=== PATIENT | female | born 1945 | race Hispanic/Latino ===

== ENCOUNTER → 2018-07-02 | Outpatient (CLI) | payer MEDICARE, OTHER ==
--- NOTE | 2018-07-02 17:55 | Diagnostic Imaging Report ---
RADIOGRAPH(S) OF THE ABDOMEN AND PELVIS, 3 view(s) HISTORY: Left lower quadrant pain COMPARISON: None available. FINDINGS: Soft tissue attenuation partially limits sensitivity of the exam. No specific evidence of obstruction or ileus. No definite urinary tract calcification. Two small pelvic calcifications, likely phleboliths. The bones are partially obscured by stool and overlying bowel gas. IMPRESSION: Nonobstructive bowel gas pattern. Signed by: Dr. Eben Bethea D.O., M.M.M. on 07/02/2018 5:52 PM
--- NOTE | 2018-07-02 19:38 | Diagnostic Imaging Report ---
TECHNIQUE: Ultrasound evaluation of the abdomen. Color doppler was utilized to supplement the evaluation. HISTORY: Left lower quadrant pain, history of cholecystectomy 1988 COMPARISON: None available. DISCUSSION: LIVER: No focal lesion is identified. The liver measures 15 cm in the right midclavicular line. BILIARY: Status post remote cholecystectomy. The common bile duct measures 0.3 cm. PANCREAS: Incompletely visualized due to overlying bowel gas, but no abnormality identified involving the visualized portions of the pancreas. SPLEEN: No splenomegaly. PERITONEUM: No free fluid. KIDNEYS: Right: Measures 12 cm in length. No hydronephrosis or solid mass lesion identified. Left: Measures 12 cm in length. No hydronephrosis or solid mass lesion identified. VASCULATURE: Aorta: Limited by regional bowel gas. Interior vena cava: Patent Portal Vein: Nondilated with hepatopedal flow. IMPRESSION: 1. Status post cholecystectomy. 2. No sonographic findings to explain the left lower quadrant pain. Signed by: Dr. Eben Bethea D.O., M.M.M. on 07/02/2018 7:35 PM
== END ==
LOC: US 16:38
PROVIDERS: ATTEND Internal Medicine Gastroenterology
DX: R10.84 Generalized abdominal pain (principal); R19.04 Left lower quadrant abdominal swelling, mass and lump
CPT/HCPCS: 74018; 76700

== ENCOUNTER → 2018-07-12 | Day surgery (SDC) | payer MEDICARE, OTHER ==
[2018-07-08 12:43] LABS: BASOPHILS # (AUTO) 0.1 (0.0-0.1); BASOPHILS % 0.8 % (0.0-1.0); EOSINOPHILS # (AUTO) 0.2 (0.0-0.4); EOSINOPHILS % 2.2 % (0.0-6.0); LYMPHOCYTES % 22.4 % (18.0-39.1); MEAN CORPUSCULAR HEMOGLOBIN 28.9 pg (28-32); MEAN CORPUSCULAR HGB CONC 32.4 g/dL (31-35); MEAN CORPUSCULAR VOLUME 89.2 fL (81-99); MONOCYTES # (AUTO) 0.7 (0.2-0.8); MONOCYTES % 7.3 % (4.4-11.3); NEUTROPHILS % 66.9 % (38.7-80.0); PLATELET COUNT 260 x10e3/uL (140-360); RED BLOOD COUNT 3.81 x10e6/uL (3.6-5.1); RED CELL DISTRIBUTION WIDTH 13.4 % (11.7-14.4)
[~2018-07-12] MED LIST: ADVAIR 250-501 EACH INH; ASMANEX220 MC1 PO; ATORVASTATIN CA20 MG PO; BENICAR40 MG PO; BP MEDICATION PO; FENTANYL CITRATE/PF 100MCG/2 ML INJ ONE; FUROSEMIDE40 MG PO; GABAPENTIN400 MG PO; HUMALOG MI100 UNITS/ SC; HYOSCYAMINE SULFATE 0.5 MG/ML INJ ONE; MIDAZOLAM HCL 2 MG/2 ML VIAL ONE; OMEPRAZOLE40 MG PO; PRO AIR INH; PROPOFOL IV EMULSION 10 MG/ML 50 ML VIAL ONE; RANITIDINE HCL300 M1 PO
--- OUTSIDE RECORDS SUMMARY | 2018-07-12 09:27 | XMS REPORT | Summary of Care ---
Author Organization Unknown Address Unknown Phone Unavailable Encounter HQ Lokeshr_luanne(MARGARET) [id number] Date(s): 08/09/14 - 08/09/14 [facility] [address] [place] [address]- [phone] Discharge Disposition: Home Physician Attending: Edis Glynn MD Physician_Referring: Edis Glynn MD Vital Signs No data available for this section Problem List Condition Effective Dates Status Health Status Informant Abdominal Active pain(Confirmed) Asthma(Confirmed) Active CAD - Coronary Active artery disease(Confirmed) CHF - Congestive Resolved heart failure(Confirmed) Depression(Confirmed Active ) Diabetes Active mellitus(Confirmed) Diarrhea(Confirmed) Active Gastritis(Confirmed) Active GERD Active (gastroesophageal reflux disease)(Confirmed) Hypertension(Confirm Active ed) Nausea and Active vomiting(Confirmed) Obese(Confirmed) Active Sleep Active apnea(Confirmed) SOB (shortness of Active breath) on exertion(Confirmed) Allergies, Adverse Reactions, Alerts Substance Reaction Severity Status cephalexin Active Lyrica Active traMADol Active Medications No data available for this section Results No data available for this section Immunizations Vaccine Date Refusal Reason pneumococcal 23-valent vaccine 07/15/09 Procedures No data available for this section Social History Social History Type Response Smoking Status Never smoker; Exposure to Tobacco Smoke None; Cigarette Smoking Last 365 Days No; Reg Smoking Cessation Counseling No Assessment and Plan No data available for this section
--- OUTSIDE RECORDS SUMMARY | 2018-07-12 09:27 | XMS REPORT | Summary of Care ---
Author Organization Unknown Address Unknown Phone Unavailable Encounter HQ Carla(MARGARET) [id number] Date(s): 09/06/14 - 09/06/14 [facility] [address] [place], [place] [address] [phone] Discharge Disposition: Home Physician Attending: Jaguar Rodriguez MD Vital Signs No data available for [...] Refusal Reason pneumococcal 23-valent vaccine 07/15/09 Procedures Procedure Date Related Diagnosis Body Site Cholecystectomy Hysterectomy Operation Social History Social History Type Response Smoking Status Never smoker; Exposure to Tobacco Smoke None; Cigarette Smoking Last 365 Days No; Reg Smoking Cessation Counseling No Assessment and Plan No data available for this section
--- OUTSIDE RECORDS SUMMARY | 2018-07-12 09:27 | XMS REPORT | Continuity of Care Document ---
Author Author [facility] Interface Address Unknown Phone Unavailable Problems Problem Status Onset Date Classification Date Reported Comments Source SCREENING MAMMOGRAM Active 09/02/2017 [facility] Radiculopathy, thoracic region 07/16/2017 10/16/2017 [facility] Acute constipation 07/10/2017 10/16/2017 [facility] Thoracic radiculopathy 07/10/2017 10/16/2017 [facility] Right flank pain 07/10/2017 10/16/[address] [facility] [address] SENT- ABD PAIN Active 07/09/2017 [facility] DX: [id number] (PRIMARY) HYPERTENSION Active 04/07/2017 [facility] ABN LFTS R94.5 Active 01/28/2017 [facility] DX; R06.02= Active 12/23/2016 [facility] Z12.31 Active 09/02/2016 [facility] ROUTINE MAMMOGRAM Active 08/30/2015 [facility] 786.6 CARDIAC MASS Active 11/28/2014 [facility] MASS IN CHEST Active 10/09/2014 [facility] SCREENING Active 08/08/2014 [facility] 401.9/250.01/789.01/789.06/577.1 Active 01/12/2014 [facility] UNK Active 01/12/2014 [facility] Abdominal pain Active Problem 10/16/2017 [facility] Asthma Active Problem 10/16/2017 [facility] CAD - Coronary artery disease Active Problem 10/16/2017 [facility] CHF - Congestive heart failure Resolved Problem 10/16/2017 [facility] Depression Active Problem 04/13/2017 [facility] Diabetes mellitus Active Problem 10/16/2017 [facility] Diarrhea Active Problem 10/16/2017 [facility] Gastritis Active Problem 10/16/2017 [facility] GERD (<span ID="[id number]">Confirmed</span>) Active Problem 10/16/2017 [facility], [facility] Hypertension Active Problem 10/16/2017 [facility], [facility] Nausea and vomiting Active Problem 10/16/2017 [facility] Obese Active Problem 10/16/2017 [facility] Sleep apnea Active Problem 10/16/2017 [facility] SOB on exertion(<span ID="[id number]">Confirmed</span>) Active Problem 10/16/2017 [facility], [facility] Encounter for screening mammogram for malignant neoplasm of breast 10/16/2017 [facility] Constipation, unspecified 10/16/2017 [facility] Solitary pulmonary nodule 10/16/2017 [facility] Hypertensive heart disease with heart failure 10/16/2017 [facility] Heart failure, unspecified 10/16/2017 [facility] Type 2 diabetes mellitus without complications 10/16/2017 [facility] Atherosclerotic heart disease of [place] coronary artery without angina pectoris 10/16/2017 [facility] 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/2017 [facility] CHEST SWELLING/MASS/LUMP Active [facility] ENCNTR SCREEN MAMMOGRAM FOR MALIGNANT NE Active [facility] ESSENTIAL (PRIMARY) HYPERTENSION Active [facility] ABNORMAL RESULTS OF LIVER FUNCTION STUDI Active [facility] Medications Medication Details Route Status Patient Instructions Ordering Provider Order Date Source Docusate Sodium 100 MG Oral Capsule [Colace] 100 mg=1 cap, PO, BID, PRN Constipation, # 60 cap, 0 Refill(s) Active 07/10/2017 [facility] Diazepam 5 MG Oral Tablet [Valium] 5 mg=1 tab, PO, ONCE, PRN Pain, before bedtime, # 10 tab, 0 Refill(s) Active 07/10/2017 [facility] Valium 5 mg, 1 mL, Route: IVP, Drug form: INJ, ONCE, Dosing Weight 103.182, kg, Priority: STAT, Start date: 07/09/17 22:18:00 RECORD LABEL INTERNSHIP, Stop date: 07/09/17 22:18:00 CSTNotes: (Same as: Valium) WASTE: F/P - Black; E - White/Blue Inactive 07/10/2017 [facility] Visipaque 100 mL, Route: IV, Drug Form: SOLN, ONCALL, Start date: 04/10/17 10:00:00 CDT, Duration: 1 doses or timesNotes: (Same as: [place]). WASTE: F/P - Black; E - Municipal Trash Bin Active 04/10/2017 [facility] Sodium Chloride 0.154 MEQ/ML Injectable Solution 1,000 mL, Rate: 25 ml/hr, Infuse over: 40 hr, Route: IV, Dosing Weight 104.545 kg, Total Volume: 1,000, Start date: 01/25/14 6:52:00, Duration: 30 day, Stop date: 02/24/14 6:51:00 Inactive 01/25/2014 [facility] 60 ACTUAT mometasone furoate 0.2 MG/ACTUAT Dry Powder Inhaler [Asmanex] 0 Refill(s) Active 01/23/2014 [facility] Nitroglycerin 0.4 MG Sublingual Tablet [Nitrostat] 0.4 mg=1 tab, SL, Q5Min, Chest Pain, # 100 tab, 0 Refill(s) Active 01/23/2014 [facility] Olmesartan medoxomil 40 MG Oral Tablet [Benicar] 40 mg=1 tab, PO, Daily, # 30 tab, 0 Refill(s) Active 01/23/2014 [facility] Furosemide 20 MG Oral Tablet 20 mg=1 tab, PO, Daily, # 30 tab, 0 Refill(s) Active 01/23/2014 [facility] Metformin hydrochloride 500 MG Oral Tablet 500 mg=1 tab, PO, BID, # 30 tab, 0 Refill(s) Active 01/23/2014 [facility] NovoLOG 70/30 40 units, SUB-Q, BID, 0 Refill(s) Active 01/23/2014 [facility] Allergies, Adverse Reactions, Alerts Substance Category Reaction Severity Reaction type Status Date Reported Comments Source cephalexin Assertion Drug allergy Active [facility] Lyrica Assertion Drug allergy Active [facility] traMADol Assertion Drug allergy Active [facility] Immunizations Immunization Date Given Site Status Last Updated Comments Source pneumococcal 23-valent vaccine 07/15/2009 Buttock completed Pichardo [facility], [facility] Results Order Name Results Value Reference Range Date Interpretation Comments Source Breast Mammo Scrn MATIAS incl CAD MA Breast Mammo Scrn MATIAS incl CAD MA BILATERAL DIGITAL SCREENING MAMMOGRAM WITH CAD: 10/13/2017 CLINICAL: /Routine. Current study was evaluated with a Computer Aided Detection (CAD) system. COMPARISON:Comparison is made to exams dated: 10/03/2016 mammogram, 09/05/2015 mammogram, 08/09/2014 mammogram, 07/29/2013 mammogram, 07/27/2012 mammogram, and 07/11/2011 mammogram - [facility]. TECHNIQUE: Mammographic views were obtained using digital acquisition. [employer] Version 1.3 was utilized for computer aided detection. FINDINGS: The tissue of both breasts is almost entirely fat. Technologist indicates the exam is limited as the patient had difficulty standing and holding still during the exam. Best images obtained were submitted for review. There is a benign cyst and an intramammary node in the left breast. There also are benign vascular calcifications and calcifications in both breasts. No significant masses, calcifications, or other findings are seen in either breast. There has been no significant interval change. IMPRESSION: BENIGN RECOMMENDATION:There is no mammographic evidence of malignancy. A 1 year screening mammogram is recommended.(10/14/2018) This exam was interpreted at [id number] for [facility]. Darrell olguin/paige:10/13/2017 13:55:12 Recreation Director(s): Steffanie Kan [facility] letter sent: BI-RADS 1/2 Mammogram BI-RADS: 2 Benign 10/13/2017 - - Read by: Darrell Ny MD Dictated Date/time: 10/13/17 13:55 Electronically Signed by: Darrell Ny MD 10/13/17 13:55 FINAL REPORT [facility] URINE AND STOOL UA Urobilinogen <=1.0 mg/dL 0.1 - 1.0 07/10/2017 [facility] URINE AND STOOL UA Ketones Negative mg/dL Negative mg/dL 07/10/2017 [facility] URINE AND STOOL UA Glucose 500 mg/dL Negative mg/dL 07/10/2017 [facility] URINE AND STOOL UA Bili Negative *NA* (07/09/17 7:30 PM) Negative 07/10/2017 [facility] URINE AND STOOL UA Blood Small *ABN* (07/09/17 7:30 PM) Negative 07/10/2017 [facility] URINE AND STOOL UA Nitrite Negative (07/09/17 7:30 PM) Negative 07/10/2017 [facility] URINE AND STOOL UA Color Yellow *NA* (07/09/17 7:30 PM) Yellow 07/10/2017 [facility] URINE AND STOOL UA Turbidity Clear (07/09/17 7:30 PM) Clear 07/10/2017 [facility] URINE AND STOOL UA Protein 100 mg/dL Negative mg/dL 07/10/2017 [facility] URINE AND STOOL UA pH 5.0 5.0 - 8.0 07/10/2017 [facility] URINE AND STOOL UA Spec Grav 1.018 <=1.030 07/10/2017 [facility] URINE AND STOOL UA Renal Epi 8 /LPF <=0 /LPF 07/10/2017 [facility] URINE AND STOOL UA Hyal Cast 1 /LPF 0 - 2 07/10/2017 [facility] URINE AND STOOL UA RBC 5 /HPF 0 - 2 07/10/2017 [facility] URINE AND STOOL UA Leuk Est Small *ABN* (07/09/17 7:30 PM) Negative 07/10/2017 [facility] URINE AND STOOL UA WBC 10 /HPF 0 - 5 07/10/2017 [facility] URINE AND STOOL UA Mucus Few /LPF None Seen /LPF 07/10/2017 [facility] URINE AND STOOL UA Sq Epi Few /LPF Few /LPF 07/10/2017 [facility] URINE CHEM U Preg Negative (07/09/17 7:30 PM) Negative 07/10/2017 [facility] CHEM PANEL Lipase Lvl 136 unit/L 73 - 393 07/10/2017 [facility] CHEM PANEL eGFR 43 mL/min/1.73m2 07/10/2017 Result Comment: The eGFR is calculated using the CKD-EPI formula. In most young, healthy individuals the eGFR will be >90 mL/min/1.73m2. The eGFR declines with age. An eGFR of 60-89 may be normal in some populations, particularly the elderly, for whom the CKD-EPI formula has not been extensively validated. Use of the eGFR is not recommended in the following populations: Individuals with unstable creatinine concentrations, including patients and those with serious co-morbid conditions. Patients with extremes in muscle mass or diet. The data above are obtained from the National Kidney Disease Education Program (NKDEP) which additionally recommends that when the eGFR is used in patients with extremes of body mass index for purposes of drug dosing, the eGFR should be multiplied by the estimated BMI. [facility] CHEM PANEL Alk Phos 110 unit/L 39 - 136 07/10/2017 [facility] CHEM PANEL Bili Total 0.3 mg/dL 0.2 - 1.3 07/10/2017 [facility] CHEM PANEL Glucose Lvl 293 mg/dL 70 - 99 07/10/2017 [facility] CHEM PANEL BUN 24 mg/dL 7 - 22 07/10/2017 [facility] CHEM PANEL Creatinine Lvl 1.27 mg/dL 0.50 - 1.40 07/10/2017 [facility] CHEM PANEL Albumin Lvl 3.2 g/dL 3.5 - 5.0 07/10/2017 [facility] CHEM PANEL ALT 64 unit/L 0 - 65 07/10/2017 [facility] CHEM PANEL Sodium Lvl 134 meq/L 135 - 145 07/10/2017 [facility] CHEM PANEL Potassium Lvl 4.9 meq/L 3.5 - 5.1 07/10/2017 [facility] CHEM PANEL Chloride Lvl 100 meq/L 95 - 109 07/10/2017 [facility] CHEM PANEL AST 62 unit/L 0 - 37 07/10/2017 [facility] CHEM PANEL CO2 26 meq/L 24 - 32 07/10/2017 [facility] CHEM PANEL Calcium Lvl 8.7 mg/dL 8.5 - 10.5 07/10/2017 [facility] CHEM PANEL Total Protein 7.5 g/dL 6.4 - 8.4 07/10/2017 [facility] CHEM PANEL Globulin 4.3 g/dL 2.7 - 4.2 07/10/2017 [facility] CHEM PANEL A/G Ratio 0.7 0.7 - 1.6 07/10/2017 [facility] CHEM PANEL AGAP 12.9 meq/L 10.0 - 20.0 07/10/2017 [facility] CHEM PANEL B/C Ratio 19 6 - 25 07/10/2017 [facility] HEMATOLOGY Monocytes # 0.9 K/CMM 0.0 - 0.8 07/10/2017 [facility] HEMATOLOGY Basophils 1.0 % 0.0 - 1.0 07/10/2017 [facility] HEMATOLOGY Monocytes 11.5 % 2.0 - 12.0 07/10/2017 [facility] HEMATOLOGY Lymphocytes 26.8 % 20.0 - 40.0 07/10/2017 [facility] HEMATOLOGY Lymphocytes # 2.0 K/CMM 1.0 - 5.5 07/10/2017 [facility] HEMATOLOGY Segs-Bands # 4.5 K/CMM 1.5 - 8.1 07/10/2017 [facility] HEMATOLOGY Eosinophils 1.2 % 0.0 - 4.0 07/10/2017 [facility] Eosinophils # 0.1 K/CMM 0.0 - 0.5 07/10/2017 [facility] Basophils # 0.1 K/CMM 0.0 - 0.2 07/10/2017 [facility] Segs 59.5 % 45.0 - 75.0 07/10/2017 [facility] MPV 11.2 fL 7.4 - 10.4 07/10/2017 [facility] MCV 86.4 fL 80.0 - 98.0 07/10/2017 [facility] MCH 28.7 pg 27.0 - 31.0 07/10/2017 [facility] Platelet 216 K/CMM 133 - 450 07/10/2017 [facility] RDW 13.8 % 11.5 - 14.5 07/10/2017 [facility] MCHC 33.2 g/dL 32.0 - 36.0 07/10/2017 [facility] RBC 4.30 M/CMM 4.20 - 5.40 07/10/2017 [facility] Hct 37.2 % 36.0 - 48.0 07/10/2017 [facility] Hgb 12.4 g/dL 12.0 - 16.0 07/10/2017 [facility] WBC 7.5 K/CMM 3.7 - 10.4 07/10/2017 [facility] Chest Pulmonary Embolism CTA Chest Pulmonary Embolism CTA addendum: 3 D volume rendered images were also performed Clinical Indication: - right lower flank pain Comparison: None TECHNIQUE: Sequential trans-axial images were obtained thru the chest and upper abdomen after administration of iodinated contrast. Coronal and sagittal reconstructions were obtained. 100 cc of nonionic contrast material was used for the exam. Dose: DLP=mGy-cm FINDINGS: LUNG PARENCHYMA AND PLEURA: There are no lung nodules. There is no significant interstitial lung disease. There are no pleural effusions. There is no pneumothorax. Within the right lower lobe there is a 3 mm nodule medially. No acute pulmonary infiltrates. AIRWAY: The central airway is normal. MEDIASTINUM: No significant mediastinal lymphadenopathy. HEART: There is no evidence of pulmonary thromboembolic disease. The cardiac chambers are otherwise unremarkable. There is no pericardial effusion. VASCULAR STRUCTURES: The pulmonary arteries and great vessels are unremarkable. The thoracic aorta is within normal limits. The superior vena cava is unremarkable. OSSEOUS STRUCTURES: There are no significant osseous abnormalities seen. VISUALIZED UPPER ABDOMEN: The visualized upper abdomen is within normal limits. IMPRESSION: Chest CT with contrast shows no evidence for pulmonary thromboembolic disease. No aortic aneurysm or dissection Right lower lobe pulmonary nodule. SL: SARAH 07/09/2017 - - Read by: Anthony Tomlin MD Dictated Date/time: 08/11/17 10:21 Electronically Signed by: Anthony Tomlin MD 08/11/17 10:22 FINAL REPORT - - Read by: Anthony Tomlin MD Dictated Date/time: 07/10/17 00:14 Electronically Signed by: Anthony Tomlin MD 07/10/17 00:20 FINAL REPORT [facility] Abdomen/Pelvis IV contrast only CT ED Abdomen/Pelvis IV contrast only CT History: Abdomen Pain DLP: 1139.36 Exam: CT Abdomen \\T\\ Pelvis Technique: Serial axial enhanced images of the abdomen and pelvis with reconstruction images are provided. Findings: Lung bases are clear other than a 6 mm right lower lobe pulmonary nodule on image 22. No pleural effusions are seen. Liver, spleen, adrenal glands, kidneys and pancreas are normal. Gallbladder not seen. There is no free fluid or bulky lymphadenopathy. Bowel loops are normal. Moderate stool seen. No appendiceal inflammation seen. Aorta and bladder are normal. Uterus removed. Impression: No acute abnormality. 07/09/2017 - - Read by: Parveen Garcia MD Dictated Date/time: 07/10/17 00:17 Electronically Signed by: Parveen Garcia MD 07/10/17 00:53 FINAL REPORT [facility] CHEM PANEL eGFR 89 mL/min/1.73m2 04/10/2017 Result Comment: The eGFR is calculated using the CKD-EPI formula. In most young, healthy individuals the eGFR will be >90 mL/min/1.73m2. The eGFR declines with age. An eGFR of 60-89 may be normal in some populations, particularly the elderly, for whom the CKD-EPI formula has not been extensively validated. Use of the eGFR is not recommended in the following populations: Individuals with unstable creatinine concentrations, including patients and those with serious co-morbid conditions. Patients with extremes in muscle mass or diet. The data above are obtained from the National Kidney Disease Education Program (NKDEP) which additionally recommends that when the eGFR is used in patients with extremes of body mass index for purposes of drug dosing, the eGFR should be multiplied by the estimated BMI. [facility] CHEM PANEL POC Creatinine 0.7 mg/dL 0.5 - 1.4 04/10/2017 [facility] Abdomen/Pelvis w IV contrast CT Abdomen/Pelvis w IV contrast CT Patient Name: KEITH KISER : 1945; Age: 71 years y/o Female MR: [id number] * I. COMPUTED TOMOGRAPHY SCAN OF THE ABDOMEN with contrast. * II. COMPUTED TOMOGRAPHY SCAN OF THE PELVIS with contrast HISTORY: Right upper quadrant abdominal pain, abdominal distention COMPARISON: 09/06/2014. Studies of 11/25/2013, 07/23/2011, and a chest and 02/12/2010 and a chest computed tomography scan of 12/01/2014 were reviewed. * TECHNIQUE: I. COMPUTED TOMOGRAPHY SCAN OF THE ABDOMEN with contrast: Helical CT images were obtained on a multidetector computed tomography from the domes the diaphragms to the iliac crests following the intravenous administration of nonionic iodinated contrast. Oral contrast was also provided. II. COMPUTED TOMOGRAPHY SCAN OF THE PELVIS with contrast: Helical CT images were obtained on a multidetector computed tomography from the iliac crests to the pubic symphysis following the intravenous administration of nonionic iodinated contrast. Oral contrast was also provided. Coronal and sagittal reconstructions were obtained. CT radiation dose DLP: 2127 mGy-cm FINDINGS: There is no evidence of an acute intra-abdominal process. There is no free intraperitoneal gas, intra-abdominal abscess, focal inflammation, or bowel obstruction. The liver, spleen, pancreas, and adrenal glands are normal in appearance. The kidneys are normal in size and show good, symmetrical excretion without hydronephrosis. No focal renal lesions are seen. There is a moderate amount of fecal material within the colon (constipation). The gastrointestinal structures are otherwise unremarkable. There is no evidence of obstruction or ileus. The appendix is not definitely visualized. There is no evidence of appendicitis. No mass or adenopathy is seen within the abdomen or pelvis. There is no ascites or other fluid collection. There is a very small umbilical hernia. There is no herniation of bowel. The gallbladder is not visualized on this study or several prior CT scans. Although no surgical clips are seen in the right upper quadrant, this is suspected the patient is status post cholecystectomy. Please correlate with surgical history. The uterus is not visualized. Presumably, the patient has had a prior hysterectomy. The aorta is normal in caliber. There are mild atherosclerotic calcifications. There is an about 5.5 mm nodule posterior in the right lung base on image 24 of series 6. This appears to be slightly larger than the prior studies and measures 4.5 mm on that study. This nodule was present in September 2008 but measured only approximately 1 -- 2 mm. This slowly growing nodule is nonspecific. It is fairly dense and well defined which would suggest a benign lesion. However, a slowly growing neoplasm cannot be excluded. Therefore, continued follow-up of this nodule is suggested. A follow-up computed tomography scan of the chest in approximately 6 months is recommended. The visualized lung bases are otherwise clear. There are no infiltrates or pleural effusions. The heart is normal in size. There is no pericardial effusion. The osseous structures are unremarkable. No blastic or destructive lesions are seen. IMPRESSION: 1. No evidence of an acute or focal intra-abdominal process. 2. Constipation. 3. Status post hysterectomy. 4. Very small umbilical hernia. 5. Apparent prior cholecystectomy. Please correlate with surgical history. 6. Atherosclerosis. 7. Small (approximately 5.5 mm) right lower lobe pulmonary nodule which appears to have been slowly growing over serial studies from September 2008. This is nonspecific. This could represent a "growing granuloma" or a very slow growing neoplastic process. A follow-up study in 6 months is suggested. SL: [id number] 04/10/2017 - - Read by: Lukasz Santigao MD Dictated Date/time: 04/10/17 13:12 Electronically Signed by: Lukasz Santiago MD 04/10/17 15:05 FINAL REPORT [facility] Abdomen complete US Abdomen complete US Patient Name: KEITH KISER : 1945; Age: 71 years y/o Female MR: [id number] Study: Abdomen complete US 02/11/2017 10:04 AM CDT Ordering Physician: Edis Glynn MD Clinical Indication: - R94.5 Abnormal results of liver function studies; Comparison: 02/14/2010 TECHNIQUE: Grayscale and limited color sonographic evaluation of the abdomen was performed with standard technique. FINDINGS: LIVER: Diffusely hyperechoic suggesting fatty infiltration. No focal lesion or duct dilatation appreciated. BILE DUCTS: The intrahepatic and extrahepatic bile ducts are not dilated with the common bile duct measuring 5.5 mm. The distal common bile duct is not well seen. GALLBLADDER: Absent. PANCREAS: The visualized pancreas appears unremarkable.. SPLEEN: The spleen is unremarkable and measures 8 x 3 x 3 cm. KIDNEY: The right kidney measures 10.8 x 5.3 x 5.6 cm. The left kidney measures 10.8 x 5.3 x 4.7 cm. No pelvocaliectasis, nephrolithiasis or renal mass lesion identified bilaterally. AORTA AND INFERIOR VENA CAVA: Only proximal abdominal aorta visualized appearing normal caliber. Mid and distal abdominal aorta obscured. Suprarenal IVC appears normal. ASCITES: There is no abdominal ascites. IMPRESSION: Prior cholecystectomy. No pathologic biliary ductal dilatation or acute findings are otherwise noted. Hepatic steatosis. SL: [id number] 02/11/2017 - - Read by: Corey Salinas MD Dictated Date/time: 02/11/17 13:38 Electronically Signed by: Corey Salinas MD 02/11/17 13:41 FINAL REPORT [facility] Cardiac SPECT multi studies MT Cardiac SPECT multi studies MT EXAM: Cardiac SPECT multi studies MT INDICATION: Angina REPORT: The patient performed treadmill exercise using a GELY protocol, exercising for 4 minutes 17 seconds minutes to stage 2 . The test was terminated due to achieving target heart rate. The heart rate frances from 82 beats per minute to 142 per minute at peak stress which is 94% of the predicted maximum predicted heart rate. The blood pressure frances from 160/80 mmHg at rest to 180/80 mmHg during peak exercise, which is a normal response. The patient does not develop any symptoms other than fatigue during the procedure. The resting ECG showed normal sinus rhythm and prior to bundle branch block without showing any ST-segment changes consistent with myocardial ischemia. MYOCARDIAL PERFUSION IMAGING: Myocardial perfusion imaging was performed at rest following the injection of 30 mCi of Tc-99m sestamibi. At peak exercise, the patient was injected with 10 mCi of Tc-99m sestamibi and exercise was continued for additional 1 minute. Gated post-stress tomographic imaging was performed. The overall quality of the study is adequate. Attenuation artifact was mild. Left ventricular cavity was noted to be normal on the rest and stress studies. SPECT images demonstrate homogeneous tracer distribution throughout the myocardium. Gated SPECT imaging reveals normal myocardial thickening and wall motion. The left ventricular ejection fraction was calculated to be 70%. IMPRESSION: 1. Myocardial perfusion imaging is normal. 2. Overall left ventricular systolic function was normal without regional wall motion abnormalities. [id number] 12/29/2016 - - Read by: Donny Aucna MD Dictated Date/time: 12/30/16 16:28 Electronically Signed by: Donny Acuna MD 12/30/16 16:32 FINAL REPORT [facility] Breast Mammo Scrn MATIAS incl CAD MA Breast Mammo Scrn MATIAS incl CAD MA - BREAST MAMMO SCRN MATIAS INCL CAD MA BILATERAL DIGITAL SCREENING MAMMOGRAM WITH CAD: 10/03/2016 CLINICAL: Routine. Current study was evaluated with a Computer Aided Detection (CAD) system. Comparison is made to exams dated: 09/05/2015 mammogram, 08/09/2014 mammogram, 07/29/2013 mammogram, 07/27/2012 mammogram, 07/11/2011 mammogram and 07/09/2010 mammogram - [facility]. The tissue of both breasts is almost entirely fat. There are benign vascular calcifications and calcifications in both breasts. There also is a benign cyst and an intramammary node in the left breast. No significant masses, calcifications, or other findings are seen in either breast. There has been no significant interval change. IMPRESSION: BENIGN There is no mammographic evidence of malignancy. A 1 year screening mammogram is recommended. Darrell olguin/penrad:10/13/2016 13:47:16 Recreation Director: Jessica Larson, [facility] This exam was dictated and interpreted by [id number] for [facility]. letter sent: Normal exam Mammogram BI-RADS: 2 Benign 10/03/2016 - - Read by: Darrell Ny MD Dictated Date/time: 10/13/16 13:47 Electronically Signed by: Darrell Ny MD 10/13/16 13:47 FINAL REPORT [facility] Digital Mammo Screening Matias MA Digital Mammo Screening Matias MA - DIGITAL MAMMO SCREENING MATIAS MA BILATERAL DIGITAL SCREENING MAMMOGRAM WITH CAD: 09/05/2015 CLINICAL: Routine. Current study was evaluated with a Computer Aided Detection (CAD) system. Comparison is made to exams dated: 08/09/2014 mammogram, 07/29/2013 mammogram, 07/27/2012 mammogram, 07/11/2011 mammogram, 07/09/2010 mammogram and 07/04/2009 mammogram - [facility]. The tissue of both breasts is almost entirely fat. There are benign vascular calcifications and calcifications in both breasts. There also is a benign cyst and an intramammary node in the left breast. No significant masses, calcifications, or other findings are seen in either breast. There has been no significant interval change. IMPRESSION: BENIGN There is no mammographic evidence of malignancy. A 1 year screening mammogram is recommended. Darrell olguin/penrad:09/05/2015 14:09:18 Recreation Director: Viki William, [facility] This exam was dictated and interpreted by [id number] for [facility]. letter sent: Normal exam Mammogram BI-RADS: 2 Benign 09/05/2015 - - Read by: Darrell Ny MD Dictated Date/time: 09/05/15 14:09 Electronically Signed by: Darrell Ny MD 09/05/15 14:09 FINAL REPORT [facility] CHEM [facility] eGFR 90 mL/min/1.73m2 12/01/2014 1Result Comment: The eGFR is calculated using the CKD-EPI formula. In most young, healthy individuals the eGFR will be >90 mL/min/1.73m2. The eGFR declines with age. An eGFR of 60-89 may be normal in some populations, particularly the elderly, for whom the CKD-EPI formula has not been extensively validated. Use of the eGFR is not recommended in the following populations: Individuals with unstable creatinine concentrations, including patients and those with serious co-morbid conditions. Patients with extremes in muscle mass or diet. The data above are obtained from the National Kidney Disease Education Program (NKDEP) which additionally recommends that when the eGFR is used in patients with extremes of body mass index for purposes of drug dosing, the eGFR should be multiplied by the estimated BMI. [facility] CHEM PANEL POC Creatinine 0.7 mg/dL 0.5 - 1.4 12/01/2014 [facility] Chest w contrast CT Chest w contrast CT CT SCAN OF THE CHEST (without contrast) History: 726.6 (swelling, mass, or lump in chest). It is noted abdominal CT scan described a "4.5 millimeter nodule" in the right lower lobe. A prior study 02/16/[address] scan of 11/25/[address] images through the lung bases from abdominal CT scan of 09/06/2014 were also reviewed. Technique: Helical CT images were obtained from the thoracic inlet to the upper abdomen. Intravenous contrast was not administered. FINDINGS: 1. No change in tiny (approximately 3.5 mm) pulmonary nodule posteriorly in the right lower lobe near the costophrenic sulcus (image 49 of series 4). This was present on an abdominal CT scans of 02/12/2010 and 10/01/2008 and therefore almost certainly represents a benign nodule such as a noncalcified granuloma. 2. No other pulmonary nodules or masses are seen. There is no hilar or mediastinal adenopathy. 3. No evidence of an active or acute process within the chest. There are no infiltrates or pleural effusions. 4. Mild areas of linear scarring in the right middle lobe and right lower lobe. There is minimal scarring in the left base. 5. The heart size is at the upper limits of normal. There is no pericardial effusion. 6. Mild atherosclerotic changes involving the thoracic aorta. There is no aneurysm or dissection 7. Mild fatty changes involving the liver. 8. Minimal degenerative changes in the thoracic spine. The regional skeleton is otherwise unremarkable. No blastic or destructive lesions are seen. CONCLUSION: 1. Tiny nodule in the right lung base which is unchanged from at least 2008 and therefore is felt to represent a small benign nodule such as a noncalcified granuloma. 2. No other suspicious nodules or masses. 3. No evidence of an active or acute process within the chest . 4. Mild areas of scarring within the lungs. 5. Mild fatty change involving the liver. Coding: Chest w contrast CT CPT code: 40759 SL: 13 Lukasz Santiago M.D. 12/01/2014 - - Read by: Lukasz Santiago MD Dictated Date/time: 12/01/14 13:47 Electronically Signed by: Lukasz Santiago MD 12/01/14 14:52 FINAL REPORT [facility] Abdomen/Pelvis w IV contrast CT Abdomen/Pelvis w IV contrast CT EXAM: CT SCAN OF THE ABDOMEN AND PELVIS WITH CONTRAST DATE: 09/06/2014 COMPARISON STUDIES: CT of the abdomen and pelvis of 11/25/2013. CLINICAL INDICATION: Right upper quadrant and right lateral abdominal pain. DATA: History of total hysterectomy and cholecystectomy. TECHNIQUE: Contiguous 5 mm spirally acquired axial images through the abdomen and pelvis were obtained after the intravenous administration 100 cc of Omnipaque 300 contrast material and following oral Omnipaque-300 contrast material. Coronal and sagittal reconstructed images were created and are provided for interpretation as well. DISCUSSION: Areas of linear scarring and/or subsegmental atelectasis are seen in both lower lobes. A 4.5 mm nodule is seen in the right lower lobe posteriorly on image 26 of series 2. No other lung base pathology is seen. No pleural or pericardial effusions are demonstrated. No abnormalities of the liver, spleen, pancreas, adrenal glands, kidneys, or biliary tree are seen. The patient is status post cholecystectomy. No abnormalities of the stomach, small bowel, or colon are demonstrated. No obstruction is seen. No lymphadenopathy, masses, or fluid collections are seen within the abdomen and pelvis. No free fluid or free air is seen. CT evaluation of the anterior abdominal wall reveals a small fat-containing umbilical hernia with no surrounding or internal inflammatory changes. There is some mild stranding in the subcutaneous fat of the right paramedian anterior abdominal wall on multiple images, likely from contusion or inflammation. CT evaluation of the pelvis reveals the bladder, vagina, rectum, and perirectal regions to be normal appearance. Calcified phleboliths are seen within the pelvis. The uterus and ovaries are absent surgically. Mild multilevel spondylosis is seen in the thoracic spine. No osseous destructive lesions are seen. Mild calcified atherosclerotic plaque formation is seen at the origin of the right renal artery result in mild right renal artery stenosis. Calcified atherosclerotic plaque formation is also seen in the aortoiliac system and to a trace degree at the origin of the superior mesenteric artery. No abnormalities of the inferior vena cava or of the portal venous system are demonstrated. Trace anterior spondylosis is seen in the thoracolumbar spine. IMPRESSION: 1. Small fat-containing umbilical hernia with no surrounding or internal inflammatory changes. 2. Nonspecific mild stranding in the subcutaneous fat in the right paramedian intra- abdominal wall which could represent contusion or nonspecific panniculitis. Clinical correlation is recommended. 3. 4.5 mm nodule in the right lower lobe posteriorly. If the patient is a smoker or has personal history of cancer, comparison with prior exams and followup chest of the CT in 6 to 12 months' time would be recommended. Otherwise, a followup [address] of the chest with contrast would be recommended. 4. Atherosclerotic vascular disease with mild narrowing of the right renal artery proximally. 5. Status post cholecystectomy, hysterectomy, and bilateral salpingo-oophorectomy. 09/06/2014 - - Read by: Reji Pennington MD Dictated Date/time: 09/06/14 13:06 Electronically Signed by: Reji Pennington MD 09/06/14 16:13 FINAL REPORT [facility] Digital Mammo Screening Matias MA Digital Mammo Screening Matias MA - DIGITAL MAMMO SCREENING MATIAS MA BILATERAL DIGITAL SCREENING MAMMOGRAM WITH CAD: 08/09/2014 CLINICAL: Routine. Current study was evaluated with a Computer Aided Detection (CAD) system. Comparison is made to exams dated: 07/29/2013 mammogram, 07/27/2012 mammogram, 07/11/2011 mammogram, 07/09/2010 mammogram and 07/04/2009 mammogram - [facility]. The tissue of both breasts is almost entirely fat. There are benign vascular calcifications and calcifications in both breasts. There also is a benign intramammary node in the left breast. No significant masses, calcifications, or other findings are seen in either breast. There has been no significant interval change. IMPRESSION: BENIGN There is no mammographic evidence of malignancy. A 1 year screening mammogram is recommended. Darrell olguin/paige:08/10/2014 07:57:23 Recreation Director: Roxann Morgan, [facility] This exam was dictated and interpreted by [id number] for [facility]. letter sent: Normal exam Mammogram BI-RADS: 2 Benign 08/09/2014 - - Read by: Darrell Ny MD Dictated Date/time: 08/10/14 07:57 Electronically Signed by: Darrell Ny MD 08/10/14 07:57 FINAL REPORT [facility] CHEM PANEL eGFR 67 mL/min/1.73m2 01/23/2014 1Result Comment: The eGFR is calculated using the CKD-EPI formula. In most young, healthy individuals the eGFR will be >90 mL/min/1.73m2. The eGFR declines with age. An eGFR of 60-89 may be normal in some populations, particularly the elderly, for whom the CKD-EPI formula has not been extensively validated. Use of the eGFR is not recommended in the following populations: Individuals with unstable creatinine concentrations, including patients and those with serious co-morbid conditions. Patients with extremes in muscle mass or diet. The data above are obtained from the National Kidney Disease Education Program (NKDEP) which additionally recommends that when the eGFR is used in patients with extremes of body mass index for purposes of drug dosing, the eGFR should be multiplied by the estimated BMI. [facility] CHEM PANEL Creatinine Lvl 0.9 mg/dL 0.5 - 1.4 01/23/2014 [facility] CHEM PANEL BUN 17 mg/dL 7 - 22 01/23/2014 [facility] CHEM PANEL Calcium Lvl 9.4 mg/dL 8.5 - 10.5 01/23/2014 [facility] CHEM PANEL CO2 30 meq/L 24 - 32 01/23/2014 [facility] CHEM PANEL Sodium Lvl 140 meq/L 135 - 145 01/23/2014 [facility] CHEM PANEL Chloride Lvl 103 meq/L 95 - 109 01/23/2014 [facility] CHEM PANEL Potassium Lvl 4.4 meq/L 3.5 - 5.1 01/23/2014 [facility] CHEM PANEL AGAP 11.4 meq/L 10.0 - 20.0 01/23/2014 [facility] CHEM PANEL Glucose Lvl 161 mg/dL 70 - 99 01/23/2014 2Interpretive Data: Adult reference range values reflect the clinical guidelines of the [place] [employer]. [facility] Vital Signs Vital Sign Value Date Comments Source Temperature Oral (F) 97.9 F 07/10/2017 [facility] Systolic (mm Hg) 134 07/10/2017 [facility] Diastolic (mm Hg) 58 07/10/2017 [facility] Respitory Rate 18 07/10/2017 [facility] Temperature Oral (F) 98 F 07/10/2017 [facility] Systolic (mm Hg) 165 07/10/2017 [facility] Diastolic (mm Hg) 56 07/10/2017 [facility] Respitory Rate 17 07/10/2017 [facility] Weight 103.182 07/10/2017 [facility] BMI Calculated 44.43 07/10/2017 [facility] Height 152.4 cm 07/10/2017 [facility] Temperature Oral (F) 97.8 F 07/10/2017 [facility] Heart Rate 94 07/10/2017 [facility] Systolic (mm Hg) 139 07/10/2017 [facility] Diastolic (mm Hg) 57 07/10/2017 [facility] Respitory Rate 20 07/10/2017 [facility] BMI Calculated 44.62 12/29/2016 [facility] Weight 103.636 12/29/2016 [facility] Height 152.4 cm 12/29/2016 [facility] Respitory Rate 18 01/25/2014 [facility] Diastolic (mm Hg) 84 01/25/2014 [facility] Systolic (mm Hg) 145 01/25/2014 [facility] Heart Rate 72 01/25/2014 [facility] Systolic (mm Hg) 159 01/25/2014 [facility] Diastolic (mm Hg) 70 01/25/2014 [facility] Heart Rate 63 01/25/2014 [facility] Respitory Rate 18 01/25/2014 [facility] Systolic (mm Hg) 149 01/25/2014 [facility] Respitory Rate 16 01/25/2014 [facility] Diastolic (mm Hg) 56 01/25/2014 [facility] Heart Rate 69 01/25/2014 [facility] Temperature Oral (F) 97.9 F 01/23/2014 [facility] Weight 104.545 01/23/2014 [facility] Height 152.4 cm 01/23/2014 [facility] BMI Calculated 45.01 01/23/2014 [facility] Encounters Location Location Details Encounter Type Encounter Number Reason For Visit Attending Provider ADM Date DC Date Status Source [facility] Bedded Outpatient [id number] Ismael Wiggins 01/25/2014 01/25/2014 [facility] Outpatient [id number] Edis Ruibal 08/09/2014 08/10/2014 [facility] [id number] Jaguar Rodriguez 09/06/2014 09/07/2014 [facility] Outpatient [id number] Kali Fiore 12/01/2014 12/02/2014 [facility] Outpatient [id number] Edis Ruibal 09/05/2015 09/06/2015 [facility] Outpatient [id number] Edis Ruibal 10/03/2016 10/04/2016 [facility] Outpatient [id number] Kali Lecafrica 12/29/2016 12/30/2016 [facility] Outpatient [id number] Edis Ruibal 02/11/2017 02/12/2017 [facility] Outpatient [id number] Vic Melendez 04/10/2017 04/11/2017 [facility] Emergency [id number] Cat Sylvie 07/09/2017 07/10/2017 [facility] Outpatient [id number] Edis Cosmel 10/13/2017 10/14/2017 [facility] Procedures Procedure Code Date Perfomer Comments Source Cholecystectomy [id number] [facility] Hysterectomy [id number] [facility] Operation [id number] [facility] Cholecystectomy [id number] [facility] Hysterectomy [id number] [facility] Operation [id number] [facility]
--- OUTSIDE RECORDS SUMMARY | 2018-07-12 09:27 | XMS REPORT | Summary of Care ---
Author Organization Unknown Address Unknown Phone Unavailable Encounter HQ Lokeshr_luanne(MARGARET) [id number] Date(s): 01/25/14 - 01/25/14 [facility] [address] [address] Discharge Disposition: Home Physician Attending: Ismael Wiggins MD Physician Admitting: Ismael Wiggins MD Physician_Referring: Ismael Wiggins MD Reason for Visit 401.9/250.01/789.01/789.06/577.1 Vital Signs 1 2 3 Most recent to oldest [Reference Range]: 152.4 cm (01/23/14 1:50 PM) Height 97.9 DegF (01/23/14 2:40 PM) Temperature Oral [96.4-99.1 DegF] 145 mmHg *HI* (01/25/14 8:15 AM) 159 mmHg *HI* (01/25/14 7:55 AM) 149 mmHg *HI* (01/25/14 7:40 AM) Systolic Blood Pressure [90-140 mmHg] 84 mmHg (01/25/14 8:15 AM) 70 mmHg (01/25/14 7:55 AM) 56 mmHg *LOW* (01/25/14 7:40 AM) Diastolic Blood Pressure [60-90 mmHg] 18 BRMIN (01/25/14 8:15 AM) 18 BRMIN (01/25/14 7:55 AM) 16 BRMIN (01/25/14 7:40 AM) Respiratory Rate [14-20 BRMIN] 72 bpm (01/25/14 8:15 AM) 63 bpm (01/25/14 7:55 AM) 69 bpm (01/25/14 7:40 AM) Peripheral Pulse Rate [60-100 bpm] 104.545 kg (01/23/14 1:50 PM) Weight 45.01 m2 (01/23/14 1:50 PM) Body Mass Index Problem List Condition Effective Dates Status Health [...] cephalexin Active Lyrica Active traMADol Active Medications Asmanex Twisthaler 60 Dose 220 mcg/inh inhalation aerosol powder 0 Refill(s) Start Date: 01/23/14 Status: Ordered Benicar 40 mg oral tablet 40 mg=1 tab, PO, Daily, # 30 tab, 0 Refill(s) Start Date: 01/23/14 Status: Ordered furosemide 20 mg oral tablet 20 mg=1 tab, PO, Daily, # 30 tab, 0 Refill(s) Start Date: 01/23/14 Status: Ordered metFORMIN 500 mg oral tablet 500 mg=1 tab, PO, BID, # 30 tab, 0 Refill(s) Start Date: 01/23/14 Status: Ordered Nitrostat 0.4 mg sublingual tablet 0.4 mg=1 tab, SL, Q5Min, Chest Pain, # 100 tab, 0 Refill(s) Start Date: 01/23/14 Status: Ordered NovoLOG 70/30 40 units, SUB-Q, BID, 0 Refill(s) Start Date: 01/23/14 Status: Ordered Sodium Chloride 0.9% IV 1,000 mL 1,000 mL, Rate: 25 ml/hr, Infuse over: 40 hr, Route: IV, Dosing Weight 104.545 k g, Total Volume: 1,000, Start date: 01/25/14 6:52:00, Duration: 30 day, Stop mo e: 02/24/14 6:51:00 Start Date: 01/25/14 Stop Date: 01/25/14 Status: Discontinued Results ELECTROLYTES Most recent to 1 oldest [Reference Range]: Sodium Lvl [135-145 140 mEq/L mEq/L] (01/23/14 2:50 PM) Potassium Lvl 4.4 mEq/L [3.5-5.1 mEq/L] (01/23/14 2:50 PM) Chloride Lvl [95-109 103 mEq/L mEq/L] (01/23/14 2:50 PM) CO2 [24-32 mEq/L] 30 mEq/L (01/23/14 2:50 PM) AGAP [10.0-20.0 11.4 mEq/L mEq/L] (01/23/14 2:50 PM) CHEM PANEL Most recent to 1 oldest [Reference Range]: Creatinine Lvl 0.9 mg/dL [0.5-1.4 mg/dL] (01/23/14 2:50 PM) eGFR 67 mL/min/1.73m2 1 *NA* (01/23/14 2:50 PM) BUN [7-22 mg/dL] 17 mg/dL (01/23/14 2:50 PM) Glucose Lvl [70-99 161 mg/dL 2 mg/dL] *HI* (01/23/14 2:50 PM) Calcium Lvl 9.4 mg/dL [8.5-10.5 mg/dL] (01/23/14 2:50 PM) 1Result Comment: The eGFR is calculated using [...] from the National Kidney Disease Education Program ( NKDEP) which additionally recommends that when the eGFR is used in patients with extremes of body mass index for purposes of drug dosing, the eGFR should be mul tiplied by the estimated BMI. 2Interpretive Data: Adult reference range values reflect the clinical guidelines of the [place] [employer]. Medications Administered During Your Visit No data available for this section Immunizations Vaccine Date Refusal Reason pneumococcal 23-valent vaccine 07/15/09 Procedures Procedure Type Body Site Date of Procedure Related Diagnosis Operation Social History Social History Type Response Smoking Status Never smoker, Exposure to Tobacco Smoke None, Cigarette Smoking Last 365 Days No, Reg Smoking Cessation Counseling No
--- OUTSIDE RECORDS SUMMARY | 2018-07-12 09:28 | XMS REPORT | Summary of Care ---
Author Author [facility] Organization [facility] Address Unknown Phone Unavailable Encounter AMANDO Aguirre(MARGARET) [id number] Date(s): 04/10/17 - 04/10/17 [facility] [address] [place] [address]- [phone] Discharge Disposition: Home or Self Care Attending Physician: Vic Melendez MD Referring Physician: Vic Melendez MD Vital Signs No data available for [...] cephalexin Active Lyrica Active traMADol Active Medications Visipaque 100 mL, Route: IV, Drug Form: YANETH BUNCH, Start date: 04/10/17 10:00:00 CDT, D uration: 1 doses or times Notes: (Same as: Visipaque).WASTE: F/P - Black; E - Municipal Trash Bin Start Date: 04/10/17 Status: Ordered Results CHEM PANEL Most recent to 1 oldest [Reference Range]: eGFR 89 mL/min/1.73m2 1 *NA* (04/10/17 8:16 AM) POC Creatinine 0.7 mg/dL [0.5-1.4 mg/dL] (04/10/17 8:16 AM) 1Result Comment: The eGFR is calculated using [...] be mul tiplied by the estimated BMI. Immunizations Given and Recorded Vaccine Date Status Refusal Reason pneumococcal 23-valent vaccine 07/15/09 Given Procedures Procedure Date Related Diagnosis Body Site Cholecystectomy Hysterectomy Operation Social History Social History Type Response Smoking Status Never smoker; Exposure to Tobacco Smoke None; Cigarette Smoking Last 365 Days No; Reg Smoking Cessation Counseling No Assessment and Plan No data available for this section
--- OUTSIDE RECORDS SUMMARY | 2018-07-12 09:28 | XMS REPORT | Summary of Care ---
Author Author [facility] Organization [facility] Address Unknown Phone Unavailable Encounter HQ Carla(MARGARET) [id number] Date(s): 02/11/17 - 02/11/17 [facility] [address] [place] [address]- Discharge Disposition: Home or Self Care Attending Physician: Edis Glynn MD Referring Physician: Edis Glynn MD Vital Signs No data [...] No data available for this section Immunizations Given and Recorded Vaccine Date Status [...]
--- OUTSIDE RECORDS SUMMARY | 2018-07-12 09:28 | XMS REPORT | Summary of Care ---
Author Author [facility] Organization [facility] Address Unknown Phone Unavailable Encounter AMANDO Aguirre(MARGARET) [id number] Date(s): 12/29/16 - 12/29/16 [facility] [address] [place] [address]- [phone] Discharge Disposition: Home or Self Care Attending Physician: Kali Fiore MD Referring Physician: Kali Fiore MD Vital Signs Most recent to 1 oldest [Reference Range]: Height 152.4 cm (12/29/16 10:59 AM) Weight 103.636 kg (12/29/16 10:59 AM) Body Mass Index 44.62 m2 (12/29/16 10:59 AM) Problem List Condition Effective Dates Status Health [...]
--- OUTSIDE RECORDS SUMMARY | 2018-07-12 09:28 | XMS REPORT | Summary of Care ---
Author Author [facility] Organization [facility] Address Unknown Phone Unavailable Encounter AMANDO Aguirre(MARGARET) [id number] Date(s): 09/05/15 - 09/05/15 [facility] [address] [place] [address]- Discharge Disposition: Home Attending Physician: Edis Glynn MD Referring Physician: [...]
--- OUTSIDE RECORDS SUMMARY | 2018-07-12 09:28 | XMS REPORT ---
Author [facility] Address Unknown Phone Unavailable Care Team Providers Care [employer] Name Role Phone JAMAL ANTHONY Unavailable Unavailable Problems This patient has no known problems. Allergies, Adverse Reactions, Alerts This patient has no known allergies or adverse reactions. Medications This patient has no known medications. Results Test Description Test Time Test Comments Text Results Atomic Results Result Comments US ABDOMEN COMPLETE 2018-07-02 19:32:00 [facility] [address] [address] Patient Name: KEITH KISER MR #: [id number] : 1945 Age/Sex: 72/F Req #: [id number] Adm Physician: Ordered by: JAMAL ANTHONY MD Report #: [id number] Location: US Room/Bed: Procedure: [id number] US/US ABDOMEN COMPLETE Exam Date: 07/02/18 Exam Time: 1749 REPORT STATUS: Signed TECHNIQUE: Ultrasound evaluation of the abdomen. Color doppler was utilized to supplement the evaluation. HISTORY: Left lower quadrant pain, history of cholecystectomy 1988 COMPARISON: None available. DISCUSSION: LIVER: No focal lesion is identified. The liver measures 15 cm in the right midclavicular line. BILIARY: Status post remote cholecystectomy. The common bile duct measures 0.3 cm. PANCREAS: Incompletely visualized due to overlying bowel gas, but no abnormality identified involving the visualized portions of the pancreas. SPLEEN: No splenomegaly. PERITONEUM: No free fluid. KIDNEYS: Right: Measures 12 cm in length. No hydronephrosis or solid mass lesion identified. Left: Measures 12 cm in length. No hydronephrosis or solid mass lesion identified. VASCULATURE: Aorta: Limited by regional bowel gas. Interior vena cava: Patent Portal Vein: Nondilated with hepatopedal flow. IMPRESSION: 1. Status post cholecystectomy. 2. No sonographic findings to explain the left lower quadrant pain. Signed by: Dr. Eben Bethea D.O., M.M.M. on 07/02/2018 7:35 PM Dictated By: EBEN BETHEA DO 34 Transcribed By: FANNIE on 07/02/181934 COPY TO: JAMAL ANTHONY MD ABDOMEN-1VIEW ([facility]) 2018-07-02 17:50:00 [address] [place] [address] Patient Name: KEITH KISER MR #: [id number] : 1945 Age/Sex: 72/F Req #: [id number] Adm Physician: Ordered by: JAMAL ANTHONY MD Report #: [id number] Location: Room/Bed: Procedure: [id number] DX/ABDOMEN-1VIEW ([facility]) Exam Date: 07/02/18 Exam Time: 1710 REPORT STATUS: Signed RADIOGRAPH(S) OF THE ABDOMEN AND PELVIS, 3 view(s) HISTORY: Left lower quadrant pain COMPARISON: None available. FINDINGS: Soft tissue attenuation partially limits sensitivity of the exam. No specific evidence of obstruction or ileus. No definite urinary tract calcification. Two small pelvic calcifications, likely phleboliths. The bones are partially obscured by stool and overlying bowel gas. IMPRESSION: Nonobstructive bowel gas pattern. Signed by: Dr. Eben Bethea D.O., M.M.M. on 07/02/2018 5:52 PM Dictated By: EBEN BETHEA DO 51 Transcribed By: FANNIE on 07/02/181751 COPY TO: JAMAL ANTHONY MD
--- OUTSIDE RECORDS SUMMARY | 2018-07-12 09:28 | XMS REPORT | Summary of Care ---
Author Author [facility] Organization [facility] Address Unknown Phone Unavailable Encounter HQ Carla(FIN) [id number] Date(s): 07/09/17 - 07/10/17 [facility] [address] [place] [address]- [phone] Encounter Diagnosis Acute constipation (Discharge Diagnosis) - 07/10/17 Thoracic radiculopathy (Discharge Diagnosis) - 07/10/17 Right flank pain (Discharge Diagnosis) - 07/10/17 Radiculopathy, thoracic region (Final) - 07/15/17 Constipation, unspecified (Final) - Solitary pulmonary nodule (Final) - Hypertensive heart disease with heart failure (Final) - Heart failure, unspecified (Final) - Type 2 diabetes mellitus without complications (Final) - 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) - 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) - Discharge Disposition: Home or Self Care Attending Physician: Winnie Mercer DO Vital Signs 1 2 3 Most recent to oldest [Reference Range]: 152.4 cm (07/09/17 6:00 PM) Height 97.9 DegF (07/10/17 1:54 AM) 98 DegF (07/09/17 10:17 PM) 97.8 DegF (07/09/17 6:00 PM) Temperature Oral [96.4-99.1 DegF] 134/58 mmHg (07/10/17 1:54 AM) 165/56 mmHg *HI* (07/09/17 10:17 PM) 139/57 mmHg (07/09/17 6:00 PM) Blood Pressure [90-140/60-90 mmHg] 18 BRMIN (07/10/17 1:54 AM) 17 BRMIN (07/09/17 10:17 PM) 20 BRMIN (07/09/17 6:00 PM) Respiratory Rate [14-20 BRMIN] 94 bpm (07/09/17 6:00 PM) Peripheral Pulse Rate [60-100 bpm] 103.182 kg (07/09/17 6:00 PM) Weight 44.43 m2 (07/09/17 6:00 PM) Body Mass Index Problem List Condition Effective Dates Status Health Status Informant Abdominal Active pain(Confirmed) Asthma(Confirmed) Active CAD - Coronary Active artery disease(Confirmed) CHF - Congestive Resolved heart failure(Confirmed) Diabetes Active mellitus(Confirmed) Diarrhea(Confirmed) Active Gastritis(Confirmed) Active GERD Active (gastroesophageal reflux disease)(Confirmed) Hypertension(Confirm Active ed) Nausea and Active vomiting(Confirmed) Obese(Confirmed) Active Sleep Active apnea(Confirmed) SOB (shortness of Active breath) on exertion(Confirmed) Allergies, Adverse Reactions, Alerts Substance Reaction Severity Status cephalexin Active Lyrica Active traMADol Active Medications Colace 100 mg oral capsule 100 mg=1 cap, PO, BID, PRN Constipation, # 60 cap, 0 Refill(s) Start Date: 07/10/17 Status: Ordered Valium 5 mg, 1 mL, Route: IVP, Drug form: INJ, ONCE, Dosing Weight 103.182, kg, Priorit y: STAT, Start date: 07/09/17 22:18:00 [employer], Stop date: 07/09/17 22:18:00 [employer]ST[employer] Notes: (Same as: Valium)WASTE: F/P - Black; E - White/Blue Start Date: 07/09/17 Stop Date: 07/09/17 Status: Completed Valium 5 mg oral tablet 5 mg=1 tab, PO, ONCE, PRN Pain, before bedtime, # 10 tab, 0 Refill(s) Start Date: 07/10/17 Status: Ordered Results ELECTROLYTES Most recent to 1 oldest [Reference Range]: Sodium Lvl [135-145 134 mEq/L mEq/L] *LOW* (07/09/17 7:21 PM) Potassium Lvl 4.9 mEq/L [3.5-5.1 mEq/L] (07/09/17 7:21 PM) Chloride Lvl [95-109 100 mEq/L mEq/L] (07/09/17 7:21 PM) CO2 [24-32 mEq/L] 26 mEq/L (07/09/17 7:21 PM) AGAP [10.0-20.0 12.9 mEq/L mEq/L] (07/09/17 7:21 PM) CHEM PANEL Most recent to 1 oldest [Reference Range]: Creatinine Lvl 1.27 mg/dL [0.50-1.40 mg/dL] (07/09/17 7:21 PM) eGFR 43 mL/min/1.73m2 1 *NA* (07/09/17 7:21 PM) BUN [7-22 mg/dL] 24 mg/dL *HI* (07/09/17 7:21 PM) B/C Ratio [6-25] 19 (07/09/17 7:21 PM) Glucose Lvl [70-99 293 mg/dL mg/dL] *HI* (07/09/17 7:21 PM) Total Protein 7.5 g/dL [6.4-8.4 g/dL] (07/09/17 7:21 PM) Albumin Lvl [3.5-5.0 3.2 g/dL g/dL] *LOW* (07/09/17 7:21 PM) Globulin [2.7-4.2 4.3 g/dL g/dL] *HI* (07/09/17 7:21 PM) A/G Ratio [0.7-1.6] 0.7 (07/09/17 7:21 PM) Calcium Lvl 8.7 mg/dL [8.5-10.5 mg/dL] (07/09/17 7:21 PM) ALT [0-65 unit/L] 64 unit/L (07/09/17 7:21 PM) AST [0-37 unit/L] 62 unit/L *HI* (07/09/17 7:21 PM) Alk Phos [39-136 110 unit/L unit/L] (07/09/17 7:21 PM) Bili Total [0.2-1.3 0.3 mg/dL mg/dL] (07/09/17 7:21 PM) Lipase Lvl [73-393 136 unit/L unit/L] (07/09/17 7:21 PM) 1Result Comment: The eGFR is calculated [...] be mul tiplied by the estimated BMI. URINE CHEM Most recent to 1 oldest [Reference Range]: U Preg [Negative] Negative (07/09/17 7:30 PM) URINE AND STOOL Most recent to 1 oldest [Reference Range]: UA Turbidity [Clear] Clear (07/09/17 7:30 PM) UA Color [Yellow] Yellow *NA* (07/09/17 7:30 PM) UA pH [5.0-8.0] 5.0 (07/09/17 7:30 PM) UA Spec Grav 1.018 [<=1.030] (07/09/17 7:30 PM) UA Glucose [Negative 500 mg/dL mg/dL] *ABN* (07/09/17 7:30 PM) UA Blood [Negative] Small *ABN* (07/09/17 7:30 PM) UA Ketones [Negative Negative mg/dL mg/dL] *NA* (07/09/17 7:30 PM) UA Protein [Negative 100 mg/dL mg/dL] *ABN* (07/09/17 7:30 PM) UA Urobilinogen <=1.0 mg/dL [0.1-1.0 mg/dL] *NA* (07/09/17 7:30 PM) UA Bili [Negative] Negative *NA* (07/09/17 7:30 PM) UA Leuk Est Small [Negative] *ABN* (07/09/17 7:30 PM) UA Nitrite Negative [Negative] (07/09/17 7:30 PM) UA WBC [0-5 /HPF] 10 /HPF *HI* (07/09/17 7:30 PM) UA RBC [0-2 /HPF] 5 /HPF *HI* (07/09/17 7:30 PM) UA Sq Epi [Few /LPF] Few /LPF *NA* (07/09/17 7:30 PM) UA Hyal Cast [0-2 1 /LPF /LPF] (07/09/17 7:30 PM) UA Renal Epi [<=0 8 /LPF /LPF] *HI* (07/09/17 7:30 PM) UA Mucus [None Seen Few /LPF /LPF] *NA* (07/09/17 7:30 PM) HEMATOLOGY Most recent to 1 oldest [Reference Range]: WBC [3.7-10.4 K/CMM] 7.5 K/CMM (07/09/17 7:21 PM) RBC [4.20-5.40 4.30 M/CMM M/CMM] (07/09/17 7:21 PM) Hgb [12.0-16.0 g/dL] 12.4 g/dL (07/09/17 7:21 PM) Hct [36.0-48.0 %] 37.2 % (07/09/17 7:21 PM) MCV [80.0-98.0 fL] 86.4 fL (07/09/17 7:21 PM) MCH [27.0-31.0 pg] 28.7 pg (07/09/17 7:21 PM) MCHC [32.0-36.0 33.2 g/dL g/dL] (07/09/17 7:21 PM) RDW [11.5-14.5 %] 13.8 % (07/09/17 7:21 PM) MPV [7.4-10.4 fL] 11.2 fL *HI* (07/09/17 7:21 PM) Platelet [133-450 216 K/CMM K/CMM] (07/09/17 7:21 PM) Segs [45.0-75.0 %] 59.5 % (07/09/17 7:21 PM) Lymphocytes 26.8 % [20.0-40.0 %] (07/09/17 7:21 PM) Monocytes [2.0-12.0 11.5 % %] (07/09/17 7:21 PM) Eosinophils [0.0-4.0 1.2 % %] (07/09/17 7:21 PM) Basophils [0.0-1.0 1.0 % %] (07/09/17 7:21 PM) Segs-Bands # 4.5 K/CMM [1.5-8.1 K/CMM] (07/09/17 7:21 PM) Lymphocytes # 2.0 K/CMM [1.0-5.5 K/CMM] (07/09/17 7:21 PM) Monocytes # [0.0-0.8 0.9 K/CMM K/CMM] *HI* (07/09/17 7:21 PM) Eosinophils # 0.1 K/CMM [0.0-0.5 K/CMM] (07/09/17 7:21 PM) Basophils # [0.0-0.2 0.1 K/CMM K/CMM] (07/09/17 7:21 PM) Immunizations Given and Recorded Vaccine Date Status Refusal Reason pneumococcal 23-valent vaccine 07/15/09 Given Procedures Procedure Date Related Diagnosis Body Site Status Cholecystectomy Completed Hysterectomy Completed Operation Completed Social History Social History Type Response Smoking Status Never smoker; Exposure to Tobacco Smoke None; Cigarette Smoking Last 365 Days No; Reg Smoking Cessation Counseling No entered on: 07/09/17 Assessment and Plan No data available for this section
--- OUTSIDE RECORDS SUMMARY | 2018-07-12 09:28 | XMS REPORT | Summary of Care ---
Author Organization Unknown Address Unknown Phone Unavailable Encounter HQ Ambar_luanne(MARGARET) [id number] Date(s): 12/01/14 - 12/01/14 [facility] [address] [place] [address]- Discharge Disposition: Home Physician Attending: Kali Fiore MD Physician_Referring: Kali Fiore MD Vital Signs No data available for [...] No data available for this section Results CHEM PANEL Most recent to 1 oldest [Reference Range]: eGFR 90 mL/min/1.73m2 1 *NA* (12/01/14 1:12 PM) POC Creatinine 0.7 mg/dL [0.5-1.4 mg/dL] (12/01/14 1:12 PM) 1Result Comment: The eGFR is calculated [...] mul tiplied by the estimated BMI. Immunizations Vaccine Date Refusal Reason pneumococcal 23-valent vaccine 07/15/09 Procedures Procedure Date Related Diagnosis Body Site Cholecystectomy Hysterectomy Operation Social History Social History Type Response Smoking Status Never smoker; Exposure to Tobacco Smoke None; Cigarette Smoking Last 365 Days No; Reg Smoking Cessation Counseling No Assessment and Plan No data available for this section
--- OUTSIDE RECORDS SUMMARY | 2018-07-12 09:28 | XMS REPORT | Summary of Care ---
Author Author [facility] Organization [facility] Address Unknown Phone Unavailable Encounter HQ Carla(MARGARET) [id number] Date(s): 10/03/16 - 10/03/16 [facility] [address] [place] [address]- Discharge Disposition: Home or Self Care Attending [...]
--- OUTSIDE RECORDS SUMMARY | 2018-07-12 09:28 | XMS REPORT | Summary of Care ---
Author Author [facility] Organization [facility] Address Unknown Phone Unavailable Encounter HQ Carla(FIN) [id number] Date(s): 10/13/17 - 10/13/17 [facility] [address] [place] [address]- Encounter Diagnosis Encounter for screening mammogram for malignant neoplasm of breast (Final) - Discharge Disposition: Home or Self [...]
[2018-07-12 15:00] VITALS: BP 164/91
--- NOTE | 2018-07-12 16:21 | Operative Report ---
DATE OF PROCEDURE: July 12, 2018 REFERRING PHYSICIAN: Dr. Edis Glynn. PROCEDURE PERFORMED: Esophagogastroduodenoscopy with biopsies and a colonoscopy with polypectomy. INDICATIONS FOR ESOPHAGOGASTRODUODENOSCOPY: Upper abdominal pain, bloating, excessive belching. INDICATIONS FOR COLONOSCOPY: Surveillance colonoscopy, personal history of colon polyps. MEDICATION: Patient was done under MAC. Please see anesthesiologist's note. PROCEDURE: With patient in left lateral decubitus position, a flexible fiberoptic Olympus gastroscope was introduced into the esophagus under direct visualization without any difficulty. There was some patchy erythema noted in distal esophagus. The scope was then advanced with ease into the stomach. Mucosa overlying the antrum and the body revealed some patchy erythema and mild to moderate edema and biopsies were obtained and sent to stain for H. pylori. The pylorus was of normal contour and shape, was intubated with ease, and the scope was advanced all the way to the 2nd portion of the duodenum. The scope was then withdrawn slowly. Mucosa overlying the proximal 2nd portion and the duodenal bulb appeared to be within normal limits. The scope was then withdrawn back into the stomach and retroflexed and a minute polyp was noted in the upper body of the stomach as well as partially excised with cold biopsy forceps. The fundus and the cardia appeared to be within normal limits. The scope was then straightened out. The stomach was decompressed. The scope subsequently withdrawn. Patient tolerated the procedure well. IMPRESSIONS 1. Distal esophagitis. 2. Gastritis, biopsied. Biopsy sent to stain for Helicobacter pylori. 3. Gastric polyp, upper body, partially excised with the cold biopsy forceps. PLAN: Follow up histology. Initiate Protonix 40 mg 1 p.o. q.a.m. a.c. Patient was then turned around and after adequate lubrication of the anal canal, a flexible fiberoptic Olympus colonoscope was inserted into the rectum with ease and advanced all the way to the cecum. Prep overall was suboptimal with retained stool in the colon. The scope was then withdrawn slowly. Whatever was visualized of the mucosa overlying the cecum, ascending colon, transverse colon appeared to be within normal limits. Two polyps were hot biopsied from the descending colon. The sigmoid and the rectum grossly appeared to be within normal limits. The scope was then retroflexed into the distal rectum and small internal hemorrhoids were noted, none of which was actively bleeding. The scope was then straightened out. It was subsequently withdrawn. Patient tolerated the procedure well. IMPRESSIONS 1. Suboptimal prep. 2. Descending colon polyp, removed with the hot biopsy forceps. 3. Internal hemorrhoids, none actively bleeding. PLAN: Follow up histology. Initiate high-fiber, low-fat diet. Initiate high-fiber supplement. Patient might benefit from a followup colonoscopy in 3 to 5 years. Job#: [id number] TA cc:EDIS GLYNN MD
== END | disposition home or self-care (01) ==
LOC: OR 09:24
PROVIDERS: ATTEND Internal Medicine Gastroenterology
DX: K29.50 Unspecified chronic gastritis without bleeding (principal); D12.4 Benign neoplasm of descending colon; K31.7 Polyp of stomach and duodenum; K20.9 Esophagitis, unspecified; K29.60 Other gastritis without bleeding; K59.09 Other constipation; K64.8 Other hemorrhoids; J44.9 Chronic obstructive pulmonary disease, unspecified; G47.33 Obstructive sleep apnea (adult) (pediatric); I10 Essential (primary) hypertension; E78.5 Hyperlipidemia, unspecified; E66.01 Morbid (severe) obesity due to excess calories; E11.9 Type 2 diabetes mellitus without complications; M54.9 Dorsalgia, unspecified; Z88.6 Allergy status to analgesic agent; Z01.810 Encounter for preprocedural cardiovascular examination; Z01.812 Encounter for preprocedural laboratory examination; Z79.4 Long term (current) use of insulin; Z68.42 Body mass index [BMI] 45.0-49.9, adult
CPT/HCPCS: 36415 ×2; 43239; 45384; 82948; 85025; 93005; J1980; J2250; J2704; 45378

== ENCOUNTER 2020-12-26 13:11 | Inpatient (IN) | payer MEDICARE, OTHER ==
[~2020-12-26] VITALS: Ht 152.4 cm; Wt 113.1 kg
[~2020-12-26 13:11] MED LIST changes: -FENTANYL CITRATE/PF 100MCG/2 ML INJ ONE; -HYOSCYAMINE SULFATE 0.5 MG/ML INJ ONE; -MIDAZOLAM HCL 2 MG/2 ML VIAL ONE; -PROPOFOL IV EMULSION 10 MG/ML 50 ML VIAL ONE
[2020-12-26 14:13] LABS: BASOPHILS % 0.5 % (0.0-1.0); EOSINOPHILS # (AUTO) 0.1 (0.0-0.4); EOSINOPHILS % 1.2 % (0.0-6.0); HEMATOCRIT 37.2 % (34.2-44.1); HEMOGLOBIN 11.6 g/dL (12.0-16.0); LYMPHOCYTES # (AUTO) 1.9 (1.0-3.2); LYMPHOCYTES % 22.5 % (18.0-39.1); MEAN CORPUSCULAR HGB CONC 31.2 g/dL (31-35); MEAN CORPUSCULAR VOLUME 89.9 fL (81-99); MONOCYTES # (AUTO) 0.6 (0.2-0.8); NEUTROPHILS # (AUTO) 5.7 (2.1-6.9); NEUTROPHILS % 68.4 % (38.7-80.0); PLATELET COUNT 211 x10e3/uL (140-360); RED BLOOD COUNT 4.14 x10e6/uL (3.6-5.1); RED CELL DISTRIBUTION WIDTH 14.3 % (11.7-14.4)
[2020-12-26 14:18] LABS: CLARITY,URINE CLEAR (CLEAR); COLOR,URINE YELLOW (YELLOW); KETONES,URINE NEGATIVE (NEGATIVE); LEUKOCYTE ESTERASE ,URINE NEGATIVE (NEGATIVE); NITRITE,URINE NEGATIVE (NEGATIVE); PROTEIN,URINE DIPSTICK >=300 (NEGATIVE); URINE UROBILINOGEN 0.2 mg/dL (0.2 - 1)
[2020-12-26 14:30] LABS: BACTERIA,URINE MODERATE /HPF; EPITHELIAL CELLS,URINE MODERATE /LPF; RBC,URINE 0-5 /HPF (0-5); RENAL EPITHELIAL CELLS,URINE FEW
[2020-12-26 14:31] LABS: ALBUMIN 2.9 g/dL (3.5-5.0); ALBUMIN/GLOBULIN RATIO 0.8 (0.8-2.0); ANION GAP 13.5 mmol/L (8-16); CALCIUM 8.7 mg/dL (8.4-10.2); CREATININE, SERUM 1.69 mg/dL (0.57-1.11)
[2020-12-26 14:35] LABS: POTASSIUM 5.5 mmol/L (3.5-5.1)
[2020-12-26 14:38] LABS: CREATINE KINASE MB 3.9 ng/mL (0-5.0)
[2020-12-26] MEDS ORDERED: SODIUM CHLORIDE FLUSH 10 ML SYR INJ PRN (17:30)
[2020-12-26] MEDS ORDERED: ASPIRIN 81 MG CHEW TAB PO ONE (17:30)
[2020-12-26] MEDS ORDERED: FUROSEMIDE INJ 10 MG/ML 2 ML VIAL IV STA (17:40)
[2020-12-26] MEDS ORDERED: SOD POLYSTYRENE SULFONATE SUSP 15 GM/60 ML BTL PO ONE (17:45)
[2020-12-26] MEDS ORDERED: ATORVASTATIN CA10 MG PO (18:52)
[2020-12-26] MEDS ORDERED: PROVENTIL HFA6.7 GM INH (18:53)
[2020-12-26] MEDS ORDERED: METFORMIN HCL500 M2 PO (18:53)
[2020-12-26] MEDS ORDERED: CITALOPRAM HBR20 MG PO (18:53)
[2020-12-27 01:00] VITALS: BP 179/75
[2020-12-27 05:20] LABS: BASOPHILS # (AUTO) 0.1 (0.0-0.1); BASOPHILS % 0.6 % (0.0-1.0); EOSINOPHILS # (AUTO) 0.1 (0.0-0.4); EOSINOPHILS % 1.4 % (0.0-6.0); HEMATOCRIT 32.3 % (34.2-44.1); HEMOGLOBIN 10.3 g/dL (12.0-16.0); LYMPHOCYTES # (AUTO) 2.3 (1.0-3.2); LYMPHOCYTES % 28.7 % (18.0-39.1); MEAN CORPUSCULAR HEMOGLOBIN 28.2 pg (28-32); MEAN CORPUSCULAR HGB CONC 31.9 g/dL (31-35); MEAN CORPUSCULAR VOLUME 88.5 fL (81-99); MONOCYTES # (AUTO) 0.7 (0.2-0.8); MONOCYTES % 9.2 % (4.4-11.3); NEUTROPHILS # (AUTO) 4.8 (2.1-6.9); NEUTROPHILS % 59.6 % (38.7-80.0); PLATELET COUNT 185 x10e3/uL (140-360); RED BLOOD COUNT 3.65 x10e6/uL (3.6-5.1); RED CELL DISTRIBUTION WIDTH 14.1 % (11.7-14.4)
[2020-12-27 05:42] LABS: ANION GAP 15.4 mmol/L (8-16); CALCIUM 8.1 mg/dL (8.4-10.2); CHOL/HDL RATIO 2.6 (3.0-3.6); CREATININE, SERUM 1.28 mg/dL (0.57-1.11); POTASSIUM 4.4 mmol/L (3.5-5.1)
[2020-12-27 06:16] LABS: CREATINE KINASE MB 3.5 ng/mL (0-5.0)
[2020-12-27 07:00] VITALS: BP 181/71
[2020-12-27] MEDS: ASPIRIN 81 MG ENTERIC COATED PO SCH (09:00)
[2020-12-27] MEDS ORDERED: ENOXAPARIN INJ 80 MG/0.8 ML SYR SC SCH (09:00)
[2020-12-27] MEDS ORDERED: DEXTROSE 50% SYRINGE 50 ML IV PRN (10:30)
[2020-12-27] MEDS ORDERED: PANTOPRAZOLE SOD 40 MG TABEC PO SCH (10:30)
[2020-12-27] MEDS ORDERED: PANTOPRAZOLE SOD 40 MG TABEC PO ONE (11:00)
[2020-12-27] MEDS: SALMETEROL/FLUTICASONE 250/50 INH SCH ×2 (11:00→20:40)
[2020-12-27 11:34] VITALS: BP 181/71
[2020-12-27 11:40] VITALS: BP 193/65
[2020-12-27] MEDS: INS LISP PRO/LISP HUMAN 75/25 100 UNITS/ML VIAL SC SCH ×2 (12:00→16:40)
[2020-12-27] MEDS: OLMESARTAN 20 MG TAB PO SCH (12:30)
[2020-12-27] MEDS: INSULIN LISPRO 100 UNIT/1 ML 3ML VIAL SQ SCH ×3 (12:30→21:12)
[2020-12-27] MEDS: ALBUTEROL SULF 0.083% NEB SOLN 3 ML NEB NEB SCH ×2 (13:00→20:40)
[2020-12-27 14:34] LABS: CREATINE KINASE MB 4.1 ng/mL (0-5.0)
[2020-12-27] MEDS: GABAPENTIN 400 MG CAP PO SCH ×2 (15:00→21:11)
[2020-12-27 16:29] VITALS: BP 166/70
[2020-12-27] MEDS ORDERED: NIFEDIPINE CR 30 MG TAB PO SCH (17:00)
[2020-12-27] MEDS ORDERED: ACETAMINOPHEN 325 MG TAB ONE (18:03)
[2020-12-27 20:00] VITALS: BP_SYST 179; BP_SYST 199; BP_DIAS 80
[2020-12-27] MEDS ORDERED: AMLODIPINE BESYL5 MG (20:43)
[2020-12-27] MEDS ORDERED: OXAZEPAM 10 MG CAP PO PRN (21:00)
[2020-12-27] MEDS ORDERED: TRAZODONE HCL 50 MG TAB PO PRN (21:00)
[2020-12-27] MEDS: ATORVASTATIN 10 MG TAB PO SCH (21:10)
[2020-12-27] MEDS: ENOXAPARIN SODIUM INJ 100 MG/ML SYR SC SCH (21:11)
[2020-12-27] MEDS: MORPHINE SULFATE INJ 4 MG/ML INJ 1ML IV PRN (22:03)
[2020-12-27] MEDS: ONDANSETRON HCL INJ 2MG/ML 2ML 2 MG/ML VIAL IV PRN (22:03)
[2020-12-27] MEDS: NIFEDIPINE CR 30 MG TAB PO SCH (22:18)
[2020-12-28] VITALS (7 sets, daily range): BP systolic 113–148; BP diastolic 49–63
[2020-12-28] MEDS ORDERED: PANTOPRAZOLE SOD 40 MG TABEC PO SCH (07:30)
[2020-12-28] MEDS: ALBUTEROL SULF 0.083% NEB SOLN 3 ML NEB NEB SCH ×3 (07:35→19:30)
[2020-12-28] MEDS: SALMETEROL/FLUTICASONE 250/50 INH SCH ×2 (07:35→19:30)
[2020-12-28] MEDS ORDERED: NON-FORMULARY MEDICATION (Olmesartan Medoxomil (Benicar) 40 MG) PO SCH (09:00)
[2020-12-28] MEDS ORDERED: FUROSEMIDE 20 MG TAB PO SCH (09:00)
[2020-12-28] MEDS: ASPIRIN 81 MG ENTERIC COATED PO SCH (09:05)
[2020-12-28] MEDS: OLMESARTAN 20 MG TAB PO SCH (09:06)
[2020-12-28] MEDS: ENOXAPARIN SODIUM INJ 100 MG/ML SYR SC SCH (09:07)
[2020-12-28] MEDS: CITALOPRAM HYDROBROMIDE 20 MG TAB PO SCH (09:07)
[2020-12-28] MEDS: GABAPENTIN 400 MG CAP PO SCH ×3 (09:07→21:45)
[2020-12-28] MEDS: INSULIN LISPRO 100 UNIT/1 ML 3ML VIAL SQ SCH ×4 (09:46→22:02)
[2020-12-28] MEDS: ONDANSETRON HCL INJ 2MG/ML 2ML 2 MG/ML VIAL IV PRN ×2 (10:42→14:35)
[2020-12-28] MEDS: INS LISP PRO/LISP HUMAN 75/25 100 UNITS/ML VIAL SC SCH ×2 (11:37→16:14)
[2020-12-28] MEDS ORDERED: PROMETHAZINE 25MG/ NS 50ML (IV) IV PRN (17:15)
[2020-12-28] MEDS ORDERED: SODIUM CHLORIDE 0.9% 100 ML ONE (17:44)
[2020-12-28] MEDS: ATORVASTATIN 10 MG TAB PO SCH (21:45)
[2020-12-28] MEDS: NIFEDIPINE CR 30 MG TAB PO SCH (21:46)
[2020-12-29] VITALS (8 sets, daily range): BP systolic 112–148; BP diastolic 5–87
[2020-12-29] MEDS ORDERED: MECLIZINE HCL 12.5 MG TAB PO ONE (00:45)
[2020-12-29] MEDS: ALBUTEROL SULF 0.083% NEB SOLN 3 ML NEB NEB SCH ×4 (00:55→19:43)
[2020-12-29] MEDS: SODIUM CHLORIDE 0.9% 1000ML 500 ML IV SCH ×2 (01:00→16:50)
[2020-12-29 01:03] LABS: FERRITIN 168.2 ng/mL (4.63-204.00)
[2020-12-29 06:37] LABS: HEMATOCRIT 35.3 % (34.2-44.1); MEAN CORPUSCULAR HEMOGLOBIN 28.2 pg (28-32); MEAN CORPUSCULAR HGB CONC 31.2 g/dL (31-35); MEAN CORPUSCULAR VOLUME 90.5 fL (81-99); PLATELET COUNT 130 x10e3/uL (140-360); RED CELL DISTRIBUTION WIDTH 14.6 % (11.7-14.4)
[2020-12-29 06:47] LABS: ANION GAP 15.7 mmol/L (8-16); CALCIUM 7.5 mg/dL (8.4-10.2); CREATININE, SERUM 3.09 mg/dL (0.57-1.11); POTASSIUM 4.7 mmol/L (3.5-5.1)
[2020-12-29] MEDS: SALMETEROL/FLUTICASONE 250/50 INH SCH ×2 (07:40→19:43)
[2020-12-29] MEDS: ACETAMINOPHEN 325 MG TAB PO PRN ×2 (07:44→17:30)
[2020-12-29] MEDS: INSULIN LISPRO 100 UNIT/1 ML 3ML VIAL SQ SCH ×4 (08:28→21:00)
[2020-12-29] MEDS: INS LISP PRO/LISP HUMAN 75/25 100 UNITS/ML VIAL SC SCH ×3 (08:32→16:56)
[2020-12-29] MEDS: MECLIZINE HCL 12.5 MG TAB PO SCH ×3 (08:35→22:03)
[2020-12-29] MEDS: CITALOPRAM HYDROBROMIDE 20 MG TAB PO SCH (08:36)
[2020-12-29] MEDS: APIXABAN 5 MG TABLET PO SCH ×2 (08:36→22:03)
[2020-12-29] MEDS: ASPIRIN 81 MG ENTERIC COATED PO SCH (08:37)
[2020-12-29] MEDS: GABAPENTIN 400 MG CAP PO SCH ×2 (08:38→16:52)
[2020-12-29 09:41] LABS: LYMPHOCYTES % (MANUAL) 18 % (19-48); MONOCYTES % (MANUAL) 7 % (3.4-9.0); NEUTROPHILS % (MANUAL) 75 % (40-74)
[2020-12-29] MEDS ORDERED: SODIUM CHLORIDE 0.9% 1000ML 500 ML IV SCH (14:45)
[2020-12-29] MEDS: ATORVASTATIN 10 MG TAB PO SCH (22:03)
[2020-12-29] MEDS: NIFEDIPINE CR 30 MG TAB PO SCH (22:03)
[2020-12-30] VITALS (8 sets, daily range): BP systolic 112–135; BP diastolic 44–91
[2020-12-30] MEDS: SODIUM CHLORIDE 0.9% 1000ML 500 ML IV SCH ×2 (00:45→05:45)
[2020-12-30] MEDS: ALBUTEROL SULF 0.083% NEB SOLN 3 ML NEB NEB SCH ×5 (01:15→23:05)
[2020-12-30] MEDS: ONDANSETRON HCL INJ 2MG/ML 2ML 2 MG/ML VIAL IV PRN (01:30)
[2020-12-30] MEDS: MORPHINE SULFATE INJ 4 MG/ML INJ 1ML IV PRN (01:30)
[2020-12-30 05:42] LABS: BASOPHILS % 0.4 % (0.0-1.0); EOSINOPHILS # (AUTO) 0.1 (0.0-0.4); EOSINOPHILS % 1.5 % (0.0-6.0); HEMATOCRIT 28.2 % (34.2-44.1); HEMOGLOBIN 8.6 g/dL (12.0-16.0); LYMPHOCYTES # (AUTO) 1.5 (1.0-3.2); LYMPHOCYTES % 22.2 % (18.0-39.1); MEAN CORPUSCULAR HEMOGLOBIN 27.8 pg (28-32); MEAN CORPUSCULAR HGB CONC 30.5 g/dL (31-35); MEAN CORPUSCULAR VOLUME 91.3 fL (81-99); MONOCYTES # (AUTO) 0.7 (0.2-0.8); MONOCYTES % 9.6 % (4.4-11.3); NEUTROPHILS # (AUTO) 4.4 (2.1-6.9); PLATELET COUNT 166 x10e3/uL (140-360); RED BLOOD COUNT 3.09 x10e6/uL (3.6-5.1); RED CELL DISTRIBUTION WIDTH 14.7 % (11.7-14.4)
[2020-12-30 06:04] LABS: ANION GAP 15.9 mmol/L (8-16); CALCIUM 7.1 mg/dL (8.4-10.2); CREATININE, SERUM 2.85 mg/dL (0.57-1.11); MAGNESIUM 1.9 MG/DL (1.3-2.1); PHOSPHORUS 4.8 MG/DL (2.3-4.7); POTASSIUM 4.9 mmol/L (3.5-5.1)
[2020-12-30] MEDS: INSULIN LISPRO 100 UNIT/1 ML 3ML VIAL SQ SCH ×4 (07:30→22:25)
[2020-12-30] MEDS: MECLIZINE HCL 12.5 MG TAB PO SCH (07:47)
[2020-12-30] MEDS: CITALOPRAM HYDROBROMIDE 20 MG TAB PO SCH (07:47)
[2020-12-30] MEDS: ASPIRIN 81 MG ENTERIC COATED PO SCH (07:47)
[2020-12-30] MEDS: GABAPENTIN 400 MG CAP PO SCH ×2 (07:47→17:30)
[2020-12-30] MEDS: APIXABAN 5 MG TABLET PO SCH ×2 (07:47→21:15)
[2020-12-30] MEDS: PANTOPRAZOLE SOD 40 MG TABEC PO SCH (07:48)
[2020-12-30] MEDS: INS LISP PRO/LISP HUMAN 75/25 100 UNITS/ML VIAL SC SCH ×3 (07:49→17:31)
[2020-12-30] MEDS: SALMETEROL/FLUTICASONE 250/50 INH SCH ×2 (08:20→19:09)
[2020-12-30] MEDS ORDERED: OYST-CAL-D 500MG TABLET PO ONE (08:45)
[2020-12-30] MEDS: POLYETHYLENE GLYCOL 3350 17 GM PACK PO SCH ×2 (10:41→17:30)
[2020-12-30] MEDS ORDERED: MECLIZINE HCL 12.5 MG TAB PO PRN (13:30)
[2020-12-30] MEDS: CALCIUM CARBONATE 500 MG CHEWABLE TABS PO SCH ×2 (16:09→21:15)
[2020-12-30] MEDS: ATORVASTATIN 10 MG TAB PO SCH (21:15)
[2020-12-30] MEDS: NIFEDIPINE CR 30 MG TAB PO SCH (21:22)
[2020-12-31] VITALS (10 sets, daily range): BP systolic 113–155; BP diastolic 43–73
[2020-12-31] MEDS: ONDANSETRON HCL INJ 2MG/ML 2ML 2 MG/ML VIAL IV PRN (02:10)
[2020-12-31] MEDS: MORPHINE SULFATE INJ 4 MG/ML INJ 1ML IV PRN (02:10)
[2020-12-31 05:24] LABS: BASOPHILS % 0.7 % (0.0-1.0); EOSINOPHILS # (AUTO) 0.1 (0.0-0.4); EOSINOPHILS % 1.2 % (0.0-6.0); HEMATOCRIT 27.5 % (34.2-44.1); HEMOGLOBIN 8.6 g/dL (12.0-16.0); LYMPHOCYTES # (AUTO) 1.5 (1.0-3.2); LYMPHOCYTES % 24.2 % (18.0-39.1); MEAN CORPUSCULAR HEMOGLOBIN 28.4 pg (28-32); MEAN CORPUSCULAR HGB CONC 31.3 g/dL (31-35); MEAN CORPUSCULAR VOLUME 90.8 fL (81-99); MONOCYTES # (AUTO) 0.7 (0.2-0.8); NEUTROPHILS # (AUTO) 3.7 (2.1-6.9); NEUTROPHILS % 61.9 % (38.7-80.0); PLATELET COUNT 183 x10e3/uL (140-360); RED BLOOD COUNT 3.03 x10e6/uL (3.6-5.1); RED CELL DISTRIBUTION WIDTH 14.6 % (11.7-14.4)
[2020-12-31 06:00] LABS: CALCIUM 7.5 mg/dL (8.4-10.2); CREATININE, SERUM 3.11 mg/dL (0.57-1.11); MAGNESIUM 2.1 MG/DL (1.3-2.1)
[2020-12-31] MEDS: INSULIN LISPRO 100 UNIT/1 ML 3ML VIAL SQ SCH ×4 (07:30→21:47)
[2020-12-31] MEDS: PANTOPRAZOLE SOD 40 MG TABEC PO SCH (07:30)
[2020-12-31] MEDS: INS LISP PRO/LISP HUMAN 75/25 100 UNITS/ML VIAL SC SCH ×3 (08:00→17:30)
[2020-12-31] MEDS: ALBUTEROL SULF 0.083% NEB SOLN 3 ML NEB NEB SCH ×3 (08:09→19:50)
[2020-12-31] MEDS: SALMETEROL/FLUTICASONE 250/50 INH SCH ×2 (08:09→19:50)
[2020-12-31] MEDS: POLYETHYLENE GLYCOL 3350 17 GM PACK PO SCH ×2 (09:00→21:47)
[2020-12-31] MEDS: ASPIRIN 81 MG ENTERIC COATED PO SCH (09:00)
[2020-12-31] MEDS: GABAPENTIN 400 MG CAP PO SCH ×2 (09:00→21:47)
[2020-12-31] MEDS: CITALOPRAM HYDROBROMIDE 20 MG TAB PO SCH (09:00)
[2020-12-31] MEDS: APIXABAN 5 MG TABLET PO SCH (09:00)
[2020-12-31] MEDS: CALCIUM CARBONATE 500 MG CHEWABLE TABS PO SCH ×3 (09:00→22:45)
[2020-12-31] MEDS ORDERED: METHYLPREDNISOLONE SOD SUCC 40 MG/ML VIAL 1ML IV ONE (09:35)
[2020-12-31] MEDS ORDERED: ONDANSETRON HCL 4 MG ORAL DISINTEGRATING TAB PO PRN (09:45)
[2020-12-31 10:31] LABS: BASOPHILS % 0.6 % (0.0-1.0); EOSINOPHILS # (AUTO) 0.1 (0.0-0.4); HEMATOCRIT 29.7 % (34.2-44.1); LYMPHOCYTES # (AUTO) 1.2 (1.0-3.2); LYMPHOCYTES % 22.6 % (18.0-39.1); MEAN CORPUSCULAR HGB CONC 30.3 g/dL (31-35); MEAN CORPUSCULAR VOLUME 92.5 fL (81-99); MONOCYTES # (AUTO) 0.5 (0.2-0.8); MONOCYTES % 9.1 % (4.4-11.3); NEUTROPHILS # (AUTO) 3.4 (2.1-6.9); NEUTROPHILS % 65.9 % (38.7-80.0); PLATELET COUNT 172 x10e3/uL (140-360); RED BLOOD COUNT 3.21 x10e6/uL (3.6-5.1); RED CELL DISTRIBUTION WIDTH 14.9 % (11.7-14.4)
[2020-12-31 10:48] LABS: INR 1.51
[2020-12-31] MEDS ORDERED: HEPARIN SOD (PORCINE) 1000 UNIT/ML SDV IV ONE (11:50)
[2020-12-31] MEDS ORDERED: HEPARIN 25,000 UNIT 1,200 UNIT in DEXTROSE 5% 250ML 250 ML IV SCH (12:00)
[2020-12-31] MEDS: IPRATROPIUM BROMIDE 0.02% 2.5 ML NEB NEB SCH ×2 (14:00→19:50)
[2020-12-31] MEDS: CARBIDOPA/LEVODOPA 25/100 TAB PO SCH ×2 (15:00→21:47)
[2020-12-31 16:16] LABS: ABG HCO3 21 mmol/L (22-26); ABG PCO2 43 mmHg (35-45); ABG PH 7.29 (7.35-7.45); ABG PO2 92 mmHg (80-105); ABG TCO2 22
[2020-12-31] MEDS ORDERED: SODIUM BICARBONATE 8.4% INJ 50 ML SYR IV ONE (17:00)
[2020-12-31] MEDS ORDERED: HEPARIN SOD (PORCINE) 5,000 UNIT/ML VIAL IV ONE (18:00)
[2020-12-31] MEDS: HEPARIN 25,000 UNIT 1,200 UNIT in DEXTROSE 5% 250ML 250 ML IV SCH (18:42)
[2020-12-31 18:47] LABS: INR 1.69; PROTHROMBIN TIME 20.8 seconds (11.9-14.5)
[2020-12-31] MEDS: FUROSEMIDE INJ 10 MG/ML 4 ML VIAL IV SCH (18:52)
[2020-12-31] MEDS: CITRIC ACID/SODIUM CITRATE 30 ML UDC PO SCH (18:52)
[2020-12-31] MEDS: ATORVASTATIN 10 MG TAB PO SCH (21:47)
[2020-12-31] MEDS: TRAZODONE HCL 50 MG TAB PO PRN (21:47)
[2020-12-31] MEDS: NIFEDIPINE CR 30 MG TAB PO SCH (21:47)
[2021-01-01] VITALS (22 sets, daily range): BP systolic 99–166; BP diastolic 50–91
[2021-01-01] MEDS: IPRATROPIUM BROMIDE 0.02% 2.5 ML NEB NEB SCH ×4 (01:30→19:45)
[2021-01-01] MEDS: ALBUTEROL SULF 0.083% NEB SOLN 3 ML NEB NEB SCH ×4 (01:30→19:45)
[2021-01-01] MEDS: HEPARIN 25,000 UNIT 1,200 UNIT in DEXTROSE 5% 250ML 250 ML IV SCH (02:45)
[2021-01-01 05:41] LABS: BASOPHILS % 0.1 % (0.0-1.0); EOSINOPHILS % 0.4 % (0.0-6.0); HEMOGLOBIN 8.6 g/dL (12.0-16.0); LYMPHOCYTES # (AUTO) 1.3 (1.0-3.2); LYMPHOCYTES % 18.4 % (18.0-39.1); MEAN CORPUSCULAR HEMOGLOBIN 28.3 pg (28-32); MEAN CORPUSCULAR HGB CONC 31.9 g/dL (31-35); MEAN CORPUSCULAR VOLUME 88.8 fL (81-99); MONOCYTES # (AUTO) 0.7 (0.2-0.8); MONOCYTES % 9.6 % (4.4-11.3); NEUTROPHILS # (AUTO) 4.8 (2.1-6.9); NEUTROPHILS % 70.6 % (38.7-80.0); PLATELET COUNT 191 x10e3/uL (140-360); RED BLOOD COUNT 3.04 x10e6/uL (3.6-5.1); RED CELL DISTRIBUTION WIDTH 14.6 % (11.7-14.4)
[2021-01-01 06:02] LABS: ALBUMIN 2.4 g/dL (3.5-5.0); ALBUMIN/GLOBULIN RATIO 0.9 (0.8-2.0); ANION GAP 14.9 mmol/L (8-16); CALCIUM 7.6 mg/dL (8.4-10.2); CREATININE, SERUM 2.54 mg/dL (0.57-1.11); POTASSIUM 4.9 mmol/L (3.5-5.1)
[2021-01-01] MEDS: SALMETEROL/FLUTICASONE 250/50 INH SCH ×2 (07:28→19:45)
[2021-01-01] MEDS: PANTOPRAZOLE SOD 40 MG TABEC PO SCH (07:52)
[2021-01-01] MEDS: CITRIC ACID/SODIUM CITRATE 30 ML UDC PO SCH ×2 (08:12→17:00)
[2021-01-01] MEDS: FUROSEMIDE INJ 10 MG/ML 4 ML VIAL IV SCH (08:12)
[2021-01-01] MEDS: CITALOPRAM HYDROBROMIDE 20 MG TAB PO SCH (08:12)
[2021-01-01] MEDS: ASPIRIN 81 MG ENTERIC COATED PO SCH (08:12)
[2021-01-01] MEDS: POLYETHYLENE GLYCOL 3350 17 GM PACK PO SCH ×2 (08:12→21:15)
[2021-01-01] MEDS: CARBIDOPA/LEVODOPA 25/100 TAB PO SCH ×3 (08:13→21:15)
[2021-01-01] MEDS: GABAPENTIN 400 MG CAP PO SCH ×2 (08:13→21:15)
[2021-01-01] MEDS: PREDNISONE 20 MG TAB PO SCH (08:13)
[2021-01-01] MEDS: INSULIN LISPRO 100 UNIT/1 ML 3ML VIAL SQ SCH ×4 (08:30→21:15)
[2021-01-01] MEDS: INS LISP PRO/LISP HUMAN 75/25 100 UNITS/ML VIAL SC SCH ×3 (08:31→17:23)
[2021-01-01] MEDS: CALCIUM CARBONATE 500 MG CHEWABLE TABS PO SCH ×3 (10:18→22:16)
[2021-01-01] MEDS: ATORVASTATIN 10 MG TAB PO SCH (21:15)
[2021-01-01] MEDS: NIFEDIPINE CR 30 MG TAB PO SCH (21:15)
[2021-01-01] MEDS: TRAZODONE HCL 50 MG TAB PO PRN (21:15)
[2021-01-02] VITALS (11 sets, daily range): BP systolic 117–152; BP diastolic 58–92
[2021-01-02] MEDS: ALBUTEROL SULF 0.083% NEB SOLN 3 ML NEB NEB SCH ×4 (02:05→19:25)
[2021-01-02] MEDS: IPRATROPIUM BROMIDE 0.02% 2.5 ML NEB NEB SCH ×4 (02:05→19:25)
[2021-01-02] MEDS ORDERED: HEPARIN 25,000 UNIT DRIP IV ONE (02:46)
[2021-01-02] MEDS ORDERED: BISACODYL 5 MG TAB EC PO ONE ×2 (04:30→05:30)
[2021-01-02 04:50] LABS: BASOPHILS % 0.3 % (0.0-1.0); EOSINOPHILS # (AUTO) 0.1 (0.0-0.4); EOSINOPHILS % 0.7 % (0.0-6.0); HEMATOCRIT 26.2 % (34.2-44.1); HEMOGLOBIN 8.4 g/dL (12.0-16.0); LYMPHOCYTES # (AUTO) 1.7 (1.0-3.2); MEAN CORPUSCULAR HEMOGLOBIN 28.7 pg (28-32); MEAN CORPUSCULAR HGB CONC 32.1 g/dL (31-35); MEAN CORPUSCULAR VOLUME 89.4 fL (81-99); MONOCYTES # (AUTO) 0.9 (0.2-0.8); MONOCYTES % 11.9 % (4.4-11.3); NEUTROPHILS # (AUTO) 4.7 (2.1-6.9); NEUTROPHILS % 62.4 % (38.7-80.0); PLATELET COUNT 205 x10e3/uL (140-360); RED BLOOD COUNT 2.93 x10e6/uL (3.6-5.1); RED CELL DISTRIBUTION WIDTH 14.9 % (11.7-14.4)
[2021-01-02 05:12] LABS: CALCIUM 7.7 mg/dL (8.4-10.2); CREATININE, SERUM 1.75 mg/dL (0.57-1.11)
[2021-01-02] MEDS: SALMETEROL/FLUTICASONE 250/50 INH SCH ×2 (07:25→19:25)
[2021-01-02] MEDS: PANTOPRAZOLE SOD 40 MG TABEC PO SCH (07:49)
[2021-01-02] MEDS: INSULIN LISPRO 100 UNIT/1 ML 3ML VIAL SQ SCH ×4 (08:07→20:49)
[2021-01-02] MEDS: INS LISP PRO/LISP HUMAN 75/25 100 UNITS/ML VIAL SC SCH ×3 (08:07→17:00)
[2021-01-02] MEDS: CALCIUM CARBONATE 500 MG CHEWABLE TABS PO SCH ×3 (08:30→20:48)
[2021-01-02] MEDS: GABAPENTIN 400 MG CAP PO SCH ×2 (08:30→20:47)
[2021-01-02] MEDS: FUROSEMIDE INJ 10 MG/ML 4 ML VIAL IV SCH (08:30)
[2021-01-02] MEDS: CITRIC ACID/SODIUM CITRATE 30 ML UDC PO SCH ×2 (08:30→18:04)
[2021-01-02] MEDS: POLYETHYLENE GLYCOL 3350 17 GM PACK PO SCH ×2 (08:30→20:47)
[2021-01-02] MEDS: CARBIDOPA/LEVODOPA 25/100 TAB PO SCH ×3 (08:30→20:48)
[2021-01-02] MEDS: CITALOPRAM HYDROBROMIDE 20 MG TAB PO SCH (08:30)
[2021-01-02] MEDS: PREDNISONE 20 MG TAB PO SCH (08:30)
[2021-01-02] MEDS: ASPIRIN 81 MG ENTERIC COATED PO SCH (08:30)
[2021-01-02] MEDS ORDERED: CITRATE OF MAGNESIA 300ML BOTTLE PO PRN (08:45)
[2021-01-02] MEDS: PREDNISONE 10 MG TAB PO SCH (08:48)
[2021-01-02] MEDS: DOCUSATE SODIUM 100 MG CAP PO SCH ×2 (08:51→18:04)
[2021-01-02] MEDS: MAGNESIUM HYDROXIDE 30 ML UDC PO PRN (13:07)
[2021-01-02] MEDS ORDERED: MINERAL OIL 132 ML BTL PR ONE (20:15)
[2021-01-02] MEDS ORDERED: BISACODYL 10 MG SUPP PR ONE (20:15)
[2021-01-02] MEDS ORDERED: LACTULOSE SYRUP 20 GM/30 ML UDC PO ONE (20:15)
[2021-01-02] MEDS: ATORVASTATIN 10 MG TAB PO SCH (20:47)
[2021-01-02] MEDS: NIFEDIPINE CR 30 MG TAB PO SCH (20:47)
[2021-01-02] MEDS ORDERED: SOD PHOSPHATE/SOD BIPHOSPHATE ENEMA 132 ML BTL PR ONE (22:38)
[2021-01-03] VITALS (8 sets, daily range): BP systolic 121–164; BP diastolic 55–74
[2021-01-03] MEDS: ALBUTEROL SULF 0.083% NEB SOLN 3 ML NEB NEB SCH ×4 (01:10→19:15)
[2021-01-03] MEDS: IPRATROPIUM BROMIDE 0.02% 2.5 ML NEB NEB SCH ×4 (01:10→19:15)
[2021-01-03] MEDS: ACETAMINOPHEN 325 MG TAB PO PRN (01:41)
[2021-01-03 05:40] LABS: HEMATOCRIT 29.7 % (34.2-44.1); HEMOGLOBIN 9.3 g/dL (12.0-16.0); MEAN CORPUSCULAR HEMOGLOBIN 28.3 pg (28-32); MEAN CORPUSCULAR HGB CONC 31.3 g/dL (31-35); MEAN CORPUSCULAR VOLUME 90.3 fL (81-99); PLATELET COUNT 223 x10e3/uL (140-360); RED BLOOD COUNT 3.29 x10e6/uL (3.6-5.1); RED CELL DISTRIBUTION WIDTH 15.6 % (11.7-14.4)
[2021-01-03 06:06] LABS: ANION GAP 13.9 mmol/L (8-16); CALCIUM 8.7 mg/dL (8.4-10.2); CREATININE, SERUM 1.5 mg/dL (0.57-1.11); POTASSIUM 3.9 mmol/L (3.5-5.1)
[2021-01-03] MEDS: SALMETEROL/FLUTICASONE 250/50 INH SCH ×2 (07:10→19:15)
[2021-01-03] MEDS: INSULIN LISPRO 100 UNIT/1 ML 3ML VIAL SQ SCH ×5 (07:30→21:27)
[2021-01-03] MEDS: INS LISP PRO/LISP HUMAN 75/25 100 UNITS/ML VIAL SC SCH ×3 (08:00→17:13)
[2021-01-03 08:03] LABS: LYMPHOCYTES % (MANUAL) 19 % (19-48); MONOCYTES % (MANUAL) 10 % (3.4-9.0); NEUTROPHILS % (MANUAL) 71 % (40-74)
[2021-01-03 08:04] LABS: PLATELET ESTIMATE ADEQUATE; PLATELET MORPHOLOGY COMMENT FEW LARGE; RBC MORPHOLOGY COMMENT NORMAL
[2021-01-03] MEDS: POLYETHYLENE GLYCOL 3350 17 GM PACK PO SCH ×2 (09:00→21:00)
[2021-01-03] MEDS: DOCUSATE SODIUM 100 MG CAP PO SCH ×2 (09:00→16:01)
[2021-01-03] MEDS: PANTOPRAZOLE SOD 40 MG TABEC PO SCH (10:20)
[2021-01-03] MEDS: CITALOPRAM HYDROBROMIDE 20 MG TAB PO SCH (10:21)
[2021-01-03] MEDS: FUROSEMIDE INJ 10 MG/ML 4 ML VIAL IV SCH (10:21)
[2021-01-03] MEDS: ASPIRIN 81 MG ENTERIC COATED PO SCH (10:21)
[2021-01-03] MEDS: CARBIDOPA/LEVODOPA 25/100 TAB PO SCH ×3 (10:22→21:36)
[2021-01-03] MEDS: PREDNISONE 10 MG TAB PO SCH ×2 (10:22→13:46)
[2021-01-03] MEDS: GABAPENTIN 400 MG CAP PO SCH ×2 (10:22→21:36)
[2021-01-03] MEDS: CALCIUM CARBONATE 500 MG CHEWABLE TABS PO SCH ×3 (10:33→21:37)
[2021-01-03] MEDS: HEPARIN 25,000 UNIT 1,200 UNIT in DEXTROSE 5% 250ML 250 ML IV SCH ×2 (10:49→16:01)
[2021-01-03] MEDS: ATORVASTATIN 10 MG TAB PO SCH (21:35)
[2021-01-03] MEDS: NIFEDIPINE CR 30 MG TAB PO SCH (21:36)
[2021-01-04] VITALS (8 sets, daily range): BP systolic 143–175; BP diastolic 61–73
[2021-01-04] MEDS: ALBUTEROL SULF 0.083% NEB SOLN 3 ML NEB NEB SCH ×4 (01:20→19:00)
[2021-01-04] MEDS: IPRATROPIUM BROMIDE 0.02% 2.5 ML NEB NEB SCH ×4 (01:20→21:45)
[2021-01-04] MEDS: ACETAMINOPHEN 325 MG TAB PO PRN (01:53)
[2021-01-04] MEDS ORDERED: CHLORDIAZEPOXIDE/CLIDINIUM 1 CAP PO STA (02:02)
[2021-01-04] MEDS: SIMETHICONE 80 MG CHEW PO PRN (03:32)
[2021-01-04 06:32] LABS: BASOPHILS % 0.3 % (0.0-1.0); EOSINOPHILS # (AUTO) 0.1 (0.0-0.4); EOSINOPHILS % 1.3 % (0.0-6.0); HEMATOCRIT 28.5 % (34.2-44.1); HEMOGLOBIN 8.8 g/dL (12.0-16.0); LYMPHOCYTES # (AUTO) 2.5 (1.0-3.2); LYMPHOCYTES % 27.3 % (18.0-39.1); MEAN CORPUSCULAR HEMOGLOBIN 28.5 pg (28-32); MEAN CORPUSCULAR HGB CONC 30.9 g/dL (31-35); MEAN CORPUSCULAR VOLUME 92.2 fL (81-99); MONOCYTES # (AUTO) 0.9 (0.2-0.8); MONOCYTES % 10.2 % (4.4-11.3); NEUTROPHILS # (AUTO) 5.4 (2.1-6.9); NEUTROPHILS % 59.7 % (38.7-80.0); PLATELET COUNT 219 x10e3/uL (140-360); RED BLOOD COUNT 3.09 x10e6/uL (3.6-5.1); RED CELL DISTRIBUTION WIDTH 15.6 % (11.7-14.4)
[2021-01-04 06:55] LABS: ANION GAP 11.4 mmol/L (8-16); CALCIUM 8.5 mg/dL (8.4-10.2); CREATININE, SERUM 1.26 mg/dL (0.57-1.11); POTASSIUM 4.4 mmol/L (3.5-5.1)
[2021-01-04] MEDS: SALMETEROL/FLUTICASONE 250/50 INH SCH ×2 (07:26→21:45)
[2021-01-04] MEDS: INSULIN LISPRO 100 UNIT/1 ML 3ML VIAL SQ SCH ×4 (07:30→21:00)
[2021-01-04] MEDS: INS LISP PRO/LISP HUMAN 75/25 100 UNITS/ML VIAL SC SCH ×3 (08:00→16:09)
[2021-01-04] MEDS: CHLORDIAZEPOXIDE/CLIDINIUM 1 CAP PO SCH ×4 (09:31→21:30)
[2021-01-04] MEDS: CALCIUM CARBONATE 500 MG CHEWABLE TABS PO SCH ×3 (09:32→21:31)
[2021-01-04] MEDS: GABAPENTIN 400 MG CAP PO SCH ×2 (09:32→21:30)
[2021-01-04] MEDS: FUROSEMIDE 40 MG TAB PO SCH (09:32)
[2021-01-04] MEDS: CARBIDOPA/LEVODOPA 25/100 TAB PO SCH ×3 (09:32→21:31)
[2021-01-04] MEDS: CITALOPRAM HYDROBROMIDE 20 MG TAB PO SCH (09:32)
[2021-01-04] MEDS: PREDNISONE 10 MG TAB PO SCH (09:32)
[2021-01-04] MEDS: POLYETHYLENE GLYCOL 3350 17 GM PACK PO SCH ×2 (09:32→21:30)
[2021-01-04] MEDS: ASPIRIN 81 MG ENTERIC COATED PO SCH (09:32)
[2021-01-04] MEDS: HYDROCORTISONE ACETATE 25 MG/SUPP.RECT SUPP RC SCH ×2 (09:32→17:26)
[2021-01-04] MEDS: DOCUSATE SODIUM 100 MG CAP PO SCH ×2 (09:32→17:26)
[2021-01-04] MEDS: MAGNESIUM HYDROXIDE 30 ML UDC PO PRN (15:47)
[2021-01-04] MEDS: HEPARIN 25,000 UNIT 1,200 UNIT in DEXTROSE 5% 250ML 250 ML IV SCH (18:00)
[2021-01-04] MEDS: ATORVASTATIN 10 MG TAB PO SCH (21:30)
[2021-01-04] MEDS: NIFEDIPINE CR 30 MG TAB PO SCH (21:31)
[2021-01-05] VITALS (7 sets, daily range): BP systolic 145–165; BP diastolic 61–83
[2021-01-05] MEDS: IPRATROPIUM BROMIDE 0.02% 2.5 ML NEB NEB SCH ×4 (01:00→19:00)
[2021-01-05] MEDS: ALBUTEROL SULF 0.083% NEB SOLN 3 ML NEB NEB SCH ×4 (01:00→19:00)
[2021-01-05] MEDS ORDERED: BISACODYL 10 MG SUPP PR STA (05:45)
[2021-01-05 06:54] LABS: BASOPHILS % 0.5 % (0.0-1.0); EOSINOPHILS # (AUTO) 0.1 (0.0-0.4); EOSINOPHILS % 1.6 % (0.0-6.0); HEMATOCRIT 31.5 % (34.2-44.1); HEMOGLOBIN 9.6 g/dL (12.0-16.0); LYMPHOCYTES # (AUTO) 2.5 (1.0-3.2); LYMPHOCYTES % 29.8 % (18.0-39.1); MEAN CORPUSCULAR HEMOGLOBIN 27.8 pg (28-32); MEAN CORPUSCULAR HGB CONC 30.5 g/dL (31-35); MEAN CORPUSCULAR VOLUME 91.3 fL (81-99); MONOCYTES # (AUTO) 0.8 (0.2-0.8); MONOCYTES % 10.1 % (4.4-11.3); NEUTROPHILS # (AUTO) 4.7 (2.1-6.9); NEUTROPHILS % 56.8 % (38.7-80.0); PLATELET COUNT 257 x10e3/uL (140-360); RED BLOOD COUNT 3.45 x10e6/uL (3.6-5.1); RED CELL DISTRIBUTION WIDTH 15.3 % (11.7-14.4)
[2021-01-05 07:15] LABS: ANION GAP 13.8 mmol/L (8-16); CALCIUM 8.9 mg/dL (8.4-10.2); CREATININE, SERUM 1.24 mg/dL (0.57-1.11); POTASSIUM 4.8 mmol/L (3.5-5.1)
[2021-01-05] MEDS: INSULIN LISPRO 100 UNIT/1 ML 3ML VIAL SQ SCH ×4 (07:30→22:13)
[2021-01-05] MEDS: SALMETEROL/FLUTICASONE 250/50 INH SCH ×2 (07:47→20:50)
[2021-01-05] MEDS ORDERED: APIXABAN 5 MG TABLET PO SCH (09:00)
[2021-01-05] MEDS: CARBIDOPA/LEVODOPA 25/100 TAB PO SCH ×3 (09:56→21:38)
[2021-01-05] MEDS: ASPIRIN 81 MG ENTERIC COATED PO SCH (09:56)
[2021-01-05] MEDS: CHLORDIAZEPOXIDE/CLIDINIUM 1 CAP PO SCH ×4 (09:56→21:37)
[2021-01-05] MEDS: PREDNISONE 10 MG TAB PO SCH (09:56)
[2021-01-05] MEDS: FUROSEMIDE 40 MG TAB PO SCH (09:56)
[2021-01-05] MEDS: POLYETHYLENE GLYCOL 3350 17 GM PACK PO SCH ×2 (09:56→21:00)
[2021-01-05] MEDS: CALCIUM CARBONATE 500 MG CHEWABLE TABS PO SCH ×3 (09:56→21:00)
[2021-01-05] MEDS: DOCUSATE SODIUM 100 MG CAP PO SCH ×2 (09:56→17:03)
[2021-01-05] MEDS: HYDROCORTISONE ACETATE 25 MG/SUPP.RECT SUPP RC SCH ×2 (09:56→17:00)
[2021-01-05] MEDS: CITALOPRAM HYDROBROMIDE 20 MG TAB PO SCH (09:56)
[2021-01-05] MEDS: GABAPENTIN 400 MG CAP PO SCH ×2 (09:56→21:38)
[2021-01-05] MEDS: INS LISP PRO/LISP HUMAN 75/25 100 UNITS/ML VIAL SC SCH ×3 (09:58→17:50)
[2021-01-05] MEDS: ACYCLOVIR 15 GM OINT TP SCH ×4 (12:30→22:00)
[2021-01-05] MEDS: SIMETHICONE 80 MG CHEW PO PRN (12:31)
[2021-01-05] MEDS: MAGNESIUM HYDROXIDE 30 ML UDC PO PRN (12:31)
[2021-01-05] MEDS: SENNA-S TABLET PO SCH ×2 (14:24→17:03)
[2021-01-05] MEDS ORDERED: FUROSEMIDE INJ 10 MG/ML 4 ML VIAL IV ONE (15:00)
[2021-01-05] MEDS: APIXABAN 5 MG TABLET PO SCH (17:03)
[2021-01-05] MEDS: ATORVASTATIN 10 MG TAB PO SCH (21:37)
[2021-01-05] MEDS: ACETAMINOPHEN 325 MG TAB PO PRN (21:38)
[2021-01-05] MEDS: TRAZODONE HCL 50 MG TAB PO PRN (21:38)
[2021-01-05] MEDS: NIFEDIPINE CR 30 MG TAB PO SCH (21:39)
[2021-01-06] VITALS (7 sets, daily range): BP systolic 137–168; BP diastolic 58–101
[2021-01-06] MEDS: IPRATROPIUM BROMIDE 0.02% 2.5 ML NEB NEB SCH ×4 (01:00→19:52)
[2021-01-06] MEDS: ALBUTEROL SULF 0.083% NEB SOLN 3 ML NEB NEB SCH ×4 (01:00→19:52)
[2021-01-06] MEDS: ACYCLOVIR 15 GM OINT TP SCH ×7 (01:00→21:45)
[2021-01-06 07:10] LABS: BASOPHILS % 0.6 % (0.0-1.0); EOSINOPHILS # (AUTO) 0.1 (0.0-0.4); EOSINOPHILS % 2.1 % (0.0-6.0); HEMOGLOBIN 8.8 g/dL (12.0-16.0); LYMPHOCYTES # (AUTO) 2.2 (1.0-3.2); MEAN CORPUSCULAR HEMOGLOBIN 27.8 pg (28-32); MEAN CORPUSCULAR HGB CONC 30.3 g/dL (31-35); MEAN CORPUSCULAR VOLUME 91.5 fL (81-99); MONOCYTES # (AUTO) 0.7 (0.2-0.8); MONOCYTES % 10.2 % (4.4-11.3); NEUTROPHILS # (AUTO) 3.6 (2.1-6.9); NEUTROPHILS % 53.2 % (38.7-80.0); PLATELET COUNT 240 x10e3/uL (140-360); RED BLOOD COUNT 3.17 x10e6/uL (3.6-5.1); RED CELL DISTRIBUTION WIDTH 14.9 % (11.7-14.4)
[2021-01-06] MEDS: SALMETEROL/FLUTICASONE 250/50 INH SCH ×2 (07:41→19:52)
[2021-01-06 07:48] LABS: ALBUMIN 2.5 g/dL (3.5-5.0); ALBUMIN/GLOBULIN RATIO 0.8 (0.8-2.0); ANION GAP 13.4 mmol/L (8-16); CREATININE, SERUM 1.28 mg/dL (0.57-1.11); POTASSIUM 4.4 mmol/L (3.5-5.1)
[2021-01-06] MEDS: INS LISP PRO/LISP HUMAN 75/25 100 UNITS/ML VIAL SC SCH ×3 (08:00→17:51)
[2021-01-06] MEDS: APIXABAN 5 MG TABLET PO SCH ×2 (08:50→17:05)
[2021-01-06] MEDS: FUROSEMIDE 40 MG TAB PO SCH (08:50)
[2021-01-06] MEDS: DOCUSATE SODIUM 100 MG CAP PO SCH ×2 (08:50→17:00)
[2021-01-06] MEDS: CITALOPRAM HYDROBROMIDE 20 MG TAB PO SCH (08:50)
[2021-01-06] MEDS: PREDNISONE 10 MG TAB PO SCH (08:51)
[2021-01-06] MEDS: GABAPENTIN 400 MG CAP PO SCH (08:51)
[2021-01-06] MEDS: CHLORDIAZEPOXIDE/CLIDINIUM 1 CAP PO SCH ×4 (08:51→21:42)
[2021-01-06] MEDS: CARBIDOPA/LEVODOPA 25/100 TAB PO SCH ×3 (08:52→21:42)
[2021-01-06] MEDS: CALCIUM CARBONATE 500 MG CHEWABLE TABS PO SCH ×3 (08:52→21:42)
[2021-01-06] MEDS: POLYETHYLENE GLYCOL 3350 17 GM PACK PO SCH ×2 (08:54→21:00)
[2021-01-06] MEDS: HYDROCORTISONE ACETATE 25 MG/SUPP.RECT SUPP RC SCH ×2 (08:54→17:00)
[2021-01-06] MEDS: SENNA-S TABLET PO SCH ×2 (09:00→17:00)
[2021-01-06] MEDS: SIMETHICONE 80 MG CHEW PO PRN (09:01)
[2021-01-06] MEDS: METHOCARBAMOL 500 MG TAB PO PRN (09:01)
[2021-01-06] MEDS ORDERED: FUROSEMIDE INJ 10 MG/ML 4 ML VIAL IV SCH (09:15)
[2021-01-06] MEDS: INSULIN LISPRO 100 UNIT/1 ML 3ML VIAL SQ SCH ×4 (09:48→21:00)
[2021-01-06] MEDS: FUROSEMIDE INJ 10 MG/ML 4 ML VIAL IV SCH ×2 (13:14→21:42)
[2021-01-06] MEDS: ATORVASTATIN 10 MG TAB PO SCH (21:42)
[2021-01-06] MEDS: NIFEDIPINE CR 30 MG TAB PO SCH (21:43)
[2021-01-07] VITALS (9 sets, daily range): BP systolic 134–180; BP diastolic 57–73
[2021-01-07] MEDS ORDERED: DONNATAL/LIDOCAINE/MAALOX 30 ML SUSP PO ONE (01:00)
[2021-01-07] MEDS: IPRATROPIUM BROMIDE 0.02% 2.5 ML NEB NEB SCH ×3 (01:05→19:38)
[2021-01-07] MEDS: ALBUTEROL SULF 0.083% NEB SOLN 3 ML NEB NEB SCH ×3 (01:05→19:38)
[2021-01-07] MEDS: ACYCLOVIR 15 GM OINT TP SCH ×8 (01:09→22:00)
[2021-01-07] MEDS: TRAZODONE HCL 50 MG TAB PO PRN ×2 (01:13→22:03)
[2021-01-07 06:11] LABS: BASOPHILS % 0.3 % (0.0-1.0); EOSINOPHILS # (AUTO) 0.1 (0.0-0.4); EOSINOPHILS % 1.7 % (0.0-6.0); HEMATOCRIT 29.9 % (34.2-44.1); HEMOGLOBIN 9.4 g/dL (12.0-16.0); LYMPHOCYTES # (AUTO) 2.5 (1.0-3.2); LYMPHOCYTES % 34.9 % (18.0-39.1); MEAN CORPUSCULAR HEMOGLOBIN 28.5 pg (28-32); MEAN CORPUSCULAR HGB CONC 31.4 g/dL (31-35); MEAN CORPUSCULAR VOLUME 90.6 fL (81-99); MONOCYTES # (AUTO) 0.7 (0.2-0.8); MONOCYTES % 9.7 % (4.4-11.3); NEUTROPHILS # (AUTO) 3.8 (2.1-6.9); NEUTROPHILS % 52.4 % (38.7-80.0); PLATELET COUNT 254 x10e3/uL (140-360); RED CELL DISTRIBUTION WIDTH 14.9 % (11.7-14.4)
[2021-01-07 06:43] LABS: ANION GAP 13.1 mmol/L (8-16); CREATININE, SERUM 1.2 mg/dL (0.57-1.11); MAGNESIUM 2.2 MG/DL (1.3-2.1); POTASSIUM 4.1 mmol/L (3.5-5.1)
[2021-01-07] MEDS: INSULIN LISPRO 100 UNIT/1 ML 3ML VIAL SQ SCH ×4 (07:30→21:00)
[2021-01-07] MEDS: INS LISP PRO/LISP HUMAN 75/25 100 UNITS/ML VIAL SC SCH ×4 (08:00→17:00)
[2021-01-07] MEDS: DOCUSATE SODIUM 100 MG CAP PO SCH ×2 (09:00→17:00)
[2021-01-07] MEDS: POLYETHYLENE GLYCOL 3350 17 GM PACK PO SCH ×2 (09:00→22:01)
[2021-01-07] MEDS: SENNA-S TABLET PO SCH ×3 (09:00→17:07)
[2021-01-07] MEDS: FUROSEMIDE INJ 10 MG/ML 4 ML VIAL IV SCH ×2 (10:28→21:43)
[2021-01-07] MEDS: PREDNISONE 10 MG TAB PO SCH (10:28)
[2021-01-07] MEDS: CHLORDIAZEPOXIDE/CLIDINIUM 1 CAP PO SCH ×4 (10:28→21:44)
[2021-01-07] MEDS: CITALOPRAM HYDROBROMIDE 20 MG TAB PO SCH (10:28)
[2021-01-07] MEDS: CARBIDOPA/LEVODOPA 25/100 TAB PO SCH ×3 (10:30→21:45)
[2021-01-07] MEDS: CALCIUM CARBONATE 500 MG CHEWABLE TABS PO SCH ×3 (10:30→21:45)
[2021-01-07] MEDS: APIXABAN 5 MG TABLET PO SCH ×2 (10:30→17:07)
[2021-01-07] MEDS: HYDROCORTISONE ACETATE 25 MG/SUPP.RECT SUPP RC SCH ×2 (12:02→17:07)
[2021-01-07] MEDS: SALMETEROL/FLUTICASONE 250/50 INH SCH ×2 (12:08→19:38)
[2021-01-07] MEDS: ATORVASTATIN 10 MG TAB PO SCH (21:44)
[2021-01-07] MEDS: NIFEDIPINE CR 30 MG TAB PO SCH (21:44)
[2021-01-07] MEDS: METHOCARBAMOL 500 MG TAB PO PRN (22:42)
[2021-01-08] VITALS: BP 153/53
[2021-01-08] MEDS: ACYCLOVIR 15 GM OINT TP SCH ×4 (01:00→13:52)
[2021-01-08] MEDS: ALBUTEROL SULF 0.083% NEB SOLN 3 ML NEB NEB SCH ×2 (01:00→07:00)
[2021-01-08] MEDS: IPRATROPIUM BROMIDE 0.02% 2.5 ML NEB NEB SCH ×2 (01:00→07:00)
[2021-01-08 04:00] VITALS: BP 144/58
[2021-01-08 05:18] LABS: BASOPHILS % 0.2 % (0.0-1.0); EOSINOPHILS # (AUTO) 0.1 (0.0-0.4); EOSINOPHILS % 0.7 % (0.0-6.0); HEMATOCRIT 28.9 % (34.2-44.1); LYMPHOCYTES # (AUTO) 2.6 (1.0-3.2); LYMPHOCYTES % 28.7 % (18.0-39.1); MEAN CORPUSCULAR HEMOGLOBIN 27.9 pg (28-32); MEAN CORPUSCULAR HGB CONC 31.1 g/dL (31-35); MEAN CORPUSCULAR VOLUME 89.5 fL (81-99); MONOCYTES # (AUTO) 0.8 (0.2-0.8); MONOCYTES % 9.2 % (4.4-11.3); NEUTROPHILS # (AUTO) 5.4 (2.1-6.9); NEUTROPHILS % 59.6 % (38.7-80.0); PLATELET COUNT 256 x10e3/uL (140-360); RED BLOOD COUNT 3.23 x10e6/uL (3.6-5.1); RED CELL DISTRIBUTION WIDTH 14.6 % (11.7-14.4)
[2021-01-08 05:41] LABS: ANION GAP 11.6 mmol/L (8-16); CALCIUM 8.3 mg/dL (8.4-10.2); CREATININE, SERUM 1.44 mg/dL (0.57-1.11); POTASSIUM 3.6 mmol/L (3.5-5.1)
[2021-01-08] MEDS: CHLORDIAZEPOXIDE/CLIDINIUM 1 CAP PO SCH ×2 (07:30→11:30)
[2021-01-08] MEDS: INSULIN LISPRO 100 UNIT/1 ML 3ML VIAL SQ SCH (07:30)
[2021-01-08] MEDS: SALMETEROL/FLUTICASONE 250/50 INH SCH (08:20)
[2021-01-08 08:22] VITALS: BP 148/58
[2021-01-08 08:55] VITALS: BP 148/58
[2021-01-08] MEDS: POLYETHYLENE GLYCOL 3350 17 GM PACK PO SCH (09:00)
[2021-01-08] MEDS: CALCIUM CARBONATE 500 MG CHEWABLE TABS PO SCH (09:00)
[2021-01-08] MEDS: SENNA-S TABLET PO SCH (09:00)
[2021-01-08] MEDS: ACETAMINOPHEN 325 MG TAB PO PRN (10:59)
[2021-01-08] MEDS: APIXABAN 5 MG TABLET PO SCH (11:07)
[2021-01-08] MEDS: CITALOPRAM HYDROBROMIDE 20 MG TAB PO SCH (11:07)
[2021-01-08] MEDS: FUROSEMIDE INJ 10 MG/ML 4 ML VIAL IV SCH (11:07)
[2021-01-08] MEDS: DOCUSATE SODIUM 100 MG CAP PO SCH (11:07)
[2021-01-08] MEDS: CARBIDOPA/LEVODOPA 25/100 TAB PO SCH (11:08)
[2021-01-08] MEDS: PREDNISONE 10 MG TAB PO SCH (11:08)
[2021-01-08] MEDS: HYDROCORTISONE ACETATE 25 MG/SUPP.RECT SUPP RC SCH (11:09)
[2021-01-08 11:43] VITALS: BP 140/62
== END 2021-01-08 15:10 | disposition home health service (06) | DRG 299 ==
LOC: ER 14:07 → ERHOLD 17:19 → MED/SURG 12-27 00:45 → ICU 12-31 17:38 → MED/SURG3 01-02 15:23
PROVIDERS: ADMIT Internal Medicine; ATTEND Internal Medicine
DX: I82.442 Acute embolism and thrombosis of left tibial vein (principal); I26.99 Other pulmonary embolism without acute cor pulmonale; I50.33 Acute on chronic diastolic (congestive) heart failure; J96.01 Acute respiratory failure with hypoxia; N17.0 Acute kidney failure with tubular necrosis; N17.9 Acute kidney failure, unspecified; Z68.42 Body mass index [BMI] 45.0-49.9, adult; I13.0 Hypertensive heart and chronic kidney disease with heart failure and stage 1 through stage 4 chronic kidney disease, or unspecified chronic kidney disease; E87.3 Alkalosis; E11.22 Type 2 diabetes mellitus with diabetic chronic kidney disease; N18.32 Chronic kidney disease, stage 3b; E11.65 Type 2 diabetes mellitus with hyperglycemia; K21.9 Gastro-esophageal reflux disease without esophagitis; E78.5 Hyperlipidemia, unspecified; J45.909 Unspecified asthma, uncomplicated; E66.1 Drug-induced obesity; E87.5 Hyperkalemia; G47.33 Obstructive sleep apnea (adult) (pediatric); Z83.3 Family history of diabetes mellitus; Z20.822 Contact with and (suspected) exposure to COVID-19; Z79.4 Long term (current) use of insulin; Z90.49 Acquired absence of other specified parts of digestive tract; Z88.5 Allergy status to narcotic agent; D64.9 Anemia, unspecified; E83.51 Hypocalcemia; G20 Parkinson's disease; K59.00 Constipation, unspecified; G25.1 Drug-induced tremor; T38.0X5A Adverse effect of glucocorticoids and synthetic analogues, initial encounter; Y92.230 Patient room in hospital as the place of occurrence of the external cause
CPT/HCPCS: 36415; 36600; 70450; 71045; 71250; 74018; 74019; 74176; 76770; 78580; 80048; 80053; 80061; 81001; 82270; 82542; 82550; 82553; 82607; 82728; 82746; 82805; 82947; 82948; 83540; 83690; 83735; 83880; 83970; 84100; 84466; 84484; 85007; 85025; 85027; 85045; 85379; 85610; 85730; 93005; 93306; 93970; 93976; 94060; 94640; 94660; 94664; 96372; 97139; 99285; A9540; J1644; J1650; J1815; J1940; J2270; J2405; J2550; J2920; J7030; J7050; J7512; U0002